=== PATIENT | female | born 1955 | race Caucasian/White ===

== ENCOUNTER → 2017-07-17 12:19 | Outpatient (POV) | payer BC, SELFPAY | PROVIDERS: Visit Provider Dentist | DX: Z00.00 Encounter for general adult medical examination without abnormal findings (principal) ==

== ENCOUNTER → 2017-11-13 12:01 | Outpatient (POV) | payer BC, SELFPAY | PROVIDERS: Visit Provider Dentist | DX: Z00.00 Encounter for general adult medical examination without abnormal findings (principal) ==

== ENCOUNTER → 2018-02-12 11:09 | Outpatient (POV) | payer BC, SELFPAY | PROVIDERS: Visit Provider Dentist | DX: Z00.00 Encounter for general adult medical examination without abnormal findings (principal) ==

== ENCOUNTER 2023-02-09 14:38 | Observation (INO) | payer MEDICARE, SELFPAY ==
[2023-02-09] VITALS (13 sets, daily range): BP systolic 98–145; BP diastolic 35–62; PULSE 69–84; RESP 16–20; TEMP 36.6–36.9; O2SAT 91–100; BMI 27.6; BMI 26.6
--- NOTE | 2023-02-09 14:47 | ECG_ITS ---
APPROVED REPORT Exam: Resting ECG HR:80 bpm ECG Measurements Heart Rate 80 AXES MD 163 P 63 QRSd 100 QRS 65 QT 417 T 58 QTc 452 Conclusion SINUS RHYTHM POSSIBLE INFERIOR MYOCARDIAL INFARCTION , PROBABLY OLD [30 ms Q WAVE IN II/aVF] BORDERLINE ECG UNCONFIRMED REPORT Electronically signed by : David Beckman MD 02/11/2023 20:54:41
--- NOTE | 2023-02-09 14:56 | HMH.EDGENADL ---
Discharge Plan Disposition Patient Disposition: Admitted Chief Complaint: Shortness of Breath/Dyspnea Prescriptions Prescriptions: No Action atorvastatin 80 MG tablet 40 mg PO HS oxybutynin chloride 10 MG tablet extended release 24hr 5 mg PO BID lisinopril 20 MG tablet 20 mg PO DAILY gabapentin 400 MG capsule 800 mg PO QID aspirin 81 MG tablet,delayed release (DR/EC) 81 mg PO DAILY levothyroxine 100 MCG tablet 100 mg PO DAILY MDD . amitriptyline 25 MG tablet 25 mg PO DAILY omeprazole magnesium 20 MG tablet,delayed release (DR/EC) 40 mg PO DAILY famotidine 40 mg tablet 40 mg PO DAILY Patient Comments: TAKE 1 TABLET BY MOUTH EVERY DAY fenofibrate micronized 134 mg capsule 134 mg PO DAILY Patient Comments: TAKE 1 CAPSULE BY MOUTH EVERY DAY glimepiride 4 mg tablet 4 mg PO DAILY Patient Comments: TAKE 1 TABLET BY MOUTH TWICE A DAY promethazine 25 mg tablet 25 mg PO TID Patient Comments: TAKE 1 TABLET BY MOUTH THREE TIMES A DAY ergocalciferol (vitamin D2) 1,250 mcg (50,000 unit) capsule 1,250 mcg PO DAILY Patient Comments: TAKE 1 CAPSULE BY MOUTH WEEKLY zolpidem 10 mg tablet 10 mg PO DAILY Patient Comments: TAKE 1 TABLET BY MOUTH EVERY EVENING pioglitazone 30 mg tablet 30 mg PO HS Patient Comments: TAKE 1 TABLET BY MOUTH EVERY DAY furosemide 20 mg tablet 20 mg PO DAILY Patient Comments: TAKE 1 TABLET BY MOUTH EVERY DAY Referrals Follow up/Referrals: Mohan Calhoun [Primary Care Provider] - See instructions Clinical Impressions Clinical Impression: Chronic gastrointestinal bleeding, Acute on chronic blood loss anemia Discharge ED Provider: Mundo Espino General Adult HPI <Sarah Hernandez MD - Last Filed: 02/09/23 15:00> General Chief complaint: Shortness of Breath/Dyspnea Stated complaint: SOA, weakness Time Seen by Provider: 02/09/23 14:46 History of Present Illness HPI narrative: Patient is a 67-year-old female with chronic blood loss anemia secondary to GI losses who presents today with symptomatic anemia. She states that she had her hemoglobin drawn several days ago with her primary care doctor and it was five and no blood transfusion was ordered. She has been dealing with this since 2013 states she had extensive work-up including a travel guide as well as a physician allergist immunologist has had multiple scopes and capsule endoscopy without any definitive evidence of why she is bleeding. She has no history of liver disease. She is not having any pain today. She denies being on anticoagulants or antiplatelets since this has been going on. She does have a history of coronary disease and he does have stents. No chest pain shortness of breath she does have weakness. Related Data Home Medications Medication Instructions Recorded Confirmed amitriptyline 25 mg tablet 25 mg PO DAILY sleep 12/07/18 02/09/23 aspirin 81 mg tablet,delayed 81 mg PO DAILY thinner 12/07/18 02/09/23 release atorvastatin 80 mg tablet 40 mg PO HS Cholesterol 12/07/18 02/09/23 gabapentin 400 mg capsule 800 mg PO QID Pain 12/07/18 02/09/23 levothyroxine 100 mcg tablet 100 mg PO DAILY thyroid 12/07/18 02/09/23 lisinopril 20 mg tablet 20 mg PO DAILY bp 12/07/18 02/09/23 omeprazole magnesium 20 mg 40 mg PO DAILY stomach 12/07/18 02/09/23 tablet,delayed release oxybutynin chloride 10 mg 5 mg PO BID bladder 12/07/18 02/09/23 tablet,extended release 24 hr ergocalciferol (vitamin D2) 1,250 1,250 mcg PO DAILY . 02/09/23 02/09/23 mcg (50,000 unit) capsule famotidine 40 mg tablet 40 mg PO DAILY . 02/09/23 02/09/23 fenofibrate micronized 134 mg 134 mg PO DAILY . 02/09/23 02/09/23 capsule furosemide 20 mg tablet 20 mg PO DAILY . 02/09/23 02/09/23 glimepiride 4 mg tablet 4 mg PO DAILY . 02/09/23 02/09/23 pioglitazone 30 mg tablet 30 mg PO HS . 02/09/23 02/09/23 promethazine 25 mg tablet 25
[2023-02-09 15:38] LABS: Alanine Aminotransferase 17 U/L (12-78); Albumin Level 4.1 g/dl (3.5-5.0); Albumin/Globulin Ratio 1.3 (1.1-1.8); Alkaline Phosphatase 81 U/L (38-126); Anion Gap 10.3 mEq/L (5-15); Aspartate Amino Transferase 41 U/L (14-36); Basophils # 0.1 K/mm3 (0-0.2); Bilirubin,Total 0.4 mg/dl (0.2-1.3); Blood Urea Nitrogen 12 mg/dl (7-17); Calcium 8.9 mg/dl (8.4-10.2); Carbon Dioxide 27 mmol/L (22.0-30.0); Chloride 104 mmol/L (98-107); Creatinine Clearance Estimated 51 mL/min (50-200); Eosinophils # 0.4 K/mm3 (0.0-0.4); Eosinophils % 8.1 % (0.1-12.0); Estimated Glomerular Filt Rate 41 ml/min (>60); GFR (African American) 49 ML/MIN (>60); Globulin 3.2 g/dL (1.3-3.2); Glucose 156 mg/dl (74-100); Lymphocytes % 21.8 % (10-50); Mean Corpuscular HGB Conc 28.9 g/dL (31.8-35.4); Mean Corpuscular Hemoglobin 22.4 pg (27.0-31.2); Mean Corpuscular Volume 77.7 fl (81-99); Mean Platelet Volume 9.9 fl (7.4-10.4); Monocytes # 0.3 K/mm3 (0.1-1.0); Monocytes % 5.8 % (1.7-9.3); Neutrophils # 2.8 K/mm3 (1.8-7.8); Neutrophils % 63.2 % (37.0-80.0); Platelet Count 210 K/mm3 (142-424); Potassium 4.3 mmoL/L (3.5-5.1); Red Blood Count 2.62 M/mm3 (4.20-5.40); Red Cell Distribution Width 20.9 % (11.5-17.5); Sodium 137 mmol/L (136-145); Total Protein,Serum 7.3 g/dl (6.3-8.2); White Blood Count 4.4 K/mm3 (4.8-10.8)
[2023-02-09 15:45] LABS: INR 1.01 (0.9-1.1); Prothrombin Time 10.9 seconds (10.1-12.5)
[2023-02-09 15:50] LABS: Hematocrit 20.3 % (37.0-47.0)
--- NOTE | 2023-02-09 15:51 | PC.NURSE ---
Rounded on pt asked for something to eat pt states she can only eat soft foods, Carol Cordero calling cafeteria for a soft tray for pt , visitor at bs
--- NOTE | 2023-02-09 16:03 | CT_ITS ---
PROCEDURE INFORMATION: Exam: CTA Abdomen and Pelvis With Contrast Exam date and time: 02/09/2023 4:44 PM Age: 67 years old Clinical indication: Other: Gi bleed; Additional info: Gi bleed, history of aaa TECHNIQUE: Imaging protocol: Computed tomographic angiography of the abdomen and pelvis with contrast. Exam focused on the arteries. 3D rendering (Not supervised by radiologist): MIP and/or 3D reconstructed images were created by the technologist. Radiation optimization: All CT scans at this facility use at least one of these dose optimization techniques: automated exposure control; mA and/or kV adjustment per patient size (includes targeted exams where dose is matched to clinical indication); or iterative reconstruction. Contrast material: ISOVUE; Contrast volume: 100 ml; Contrast route: INTRAVENOUS (IV); REPORTING DATA: Count of CT and Cardiac NM exams in prior 12 months: This patient has received 0 known CTs and 0 known cardiac nuclear medicine studies in the 12 months prior to the current study. COMPARISON: No relevant prior studies available. FINDINGS: Aorta: Infrarenal abdominal aortic aneurysm measuring 3.6 cm in maximal diameter. No evidence of abdominal aortic dissection. Celiac trunk and mesenteric arteries: Mild (less than 50%) ostial stenosis of the celiac trunk secondary to atherosclerotic plaque. Moderate (50-69%) ostial stenosis of the superior mesenteric artery secondary to atherosclerotic plaque. Renal arteries: Mild (less than 50%) ostial stenosis of the bilateral main renal arteries secondary to atherosclerotic plaque. Accessory right main renal artery incidentally noted. Right iliac arteries: No aneurysm, occlusion, or significant stenosis. Left iliac arteries: No aneurysm, occlusion, or significant stenosis. Liver: Fatty liver with nodular liver contour suggestive of cirrhosis. Scattered punctate calcifications in the liver compatible with chronic sequelae of prior granulomatous disease. Gallbladder and bile ducts: Gallbladder contains gallstones. No gallbladder wall thickening or pericholecystic fluid. Pancreas: Unremarkable. Spleen: Mild splenomegaly, measuring 13.0 cm in craniocaudal axis. Scattered punctate calcifications in the spleen compatible with sequelae of prior granulomatous disease. Adrenal glands: Unremarkable. Kidneys and ureters: No renal or ureteral stones. No hydronephrosis. Stomach and bowel: No evidence of abnormal bowel mass lesion, hematoma, or active extravasation. Appendix: No evidence of appendicitis. Intraperitoneal space: No free fluid. No pneumoperitoneum. Lymph nodes: Unremarkable. Urinary bladder: Unremarkable. Reproductive: Status post hysterectomy. Bones/joints: Prominent Schmorl's node with disc vacuum phenomenon noted in the superior endplate of L5. No evidence of acute osseous abnormality or suspicious bone lesions. Soft tissues: Unremarkable. IMPRESSION: 1. No evidence of active gastrointestinal bleeding, noting limited sensitivity of CT in detecting gastrointestinal bleeds. 2. Cholelithiasis without evidence of acute cholecystitis. 3. Fatty liver with nodular liver contour suggestive of cirrhosis. 4. Mild splenomegaly. 5. Infrarenal abdominal aortic aneurysm measuring 3.6 cm in maximal diameter. 6. Mild (less than 50%) ostial stenosis of the celiac trunk secondary to atherosclerotic plaque. 7. Moderate (50-69%) ostial stenosis of the superior mesenteric artery secondary to atherosclerotic plaque. 8. Mild (less than 50%) ostial stenosis of the bilateral main renal arteries secondary to atherosclerotic plaque. 9. Additional non-acute ancillary findings are detailed above.
[2023-02-09 16:04] LABS: Hemoglobin 5.9 g/dL (12.2-16.2)
--- NOTE | 2023-02-09 16:11 | PC.NURSE ---
Addendum entered by Bonnie Thomas RN 02/09/23 16:52: pt blood had antibodies and need to send out for blood Original Note: spoke with lab who states pt blood has antibiotics, due to this they have to send her blood out to get the correct transfusion blood and this could take 4-6 hours. MD aware, updating pt at this time.
--- NOTE | 2023-02-09 16:48 | PC.NURSE ---
Pt arrived back to room from ct
--- NOTE | 2023-02-09 17:50 | PC.NURSE ---
placed call to [place] Dr Espino on with Vascular
--- NOTE | 2023-02-09 17:51 | PC.NURSE ---
pt resting in bed no needs at this time,call light at bs
--- NOTE | 2023-02-09 17:54 | PC.NURSE ---
kimo navarro speaking with [employer].
--- NOTE | 2023-02-09 18:09 | PC.NURSE ---
Registration notified of admission. Pt assigned to room 213 for Anemia and GI bleed to the hospitalist. Acute.
--- NOTE | 2023-02-09 18:18 | PC.NURSE ---
CALLED REPORT TO JENNIFER HENRIQUEZ.
--- NOTE | 2023-02-09 18:34 | PC.NURSE ---
rounded on pt she is resting in bed no needs,visitor at bs
--- NOTE | 2023-02-09 18:49 | PC.NURSE ---
arrived by w/c from ED
--- NOTE | 2023-02-09 19:22 | EXP.HP ---
History of Present Illness *Admission Date: 02/09/23 *Reason for visit:: Anemia *History of present illness: 67 year old female who presented to the ED for c/o SOB and symptomatic anemia. PMHX of CAD, HTN, HLD, hypothyroid, COPD, tobacco abuse, and AAA. The patient has had chronic anemia with out known cause since 2013. She went to her PCP 2 days prior and her hgb was 5.4. Today in the ED her Hgb is 5.9. The ED physician spoke with the vascular surgeons at [facility]. Outpatient follow up was recommended and arranged. The ED physician spoke with the hospitalist team for admission. The pt was admitted to the medical floor with plans to receive 2 units of PRBC. She arrives to the floor in no acute distress. She does appear pale. She denies any known sources of bleeding. She will receive outpatient follow up with GI and vascular surgery. [facility] Disclaimer: The information contained in this section may have been updated after the patient was seen, as this information can be updated by other users. Social History (Updated 02/09/23 @ 15:00 by Sarah Hernandez MD) Smoking Status: Current every day smoker alcohol intake: never current occupational status: other (unknown) Travel in the last 8 weeks: None (unknown) caffeine: Yes Review of Systems Review of Systems Review of systems:: pertinent systems reviewed and negative unless documented below Constitutional Constitutional: Reports system reviewed and no additional complaints, except as documented Eyes Eyes: Reports system reviewed and no additional complaints, except as documented ENT Ears, Nose, Mouth, and Throat: Reports system reviewed and no additional complaints, except as documented *Cardiovascular Cardiovascular: Reports system reviewed and no additional complaints, except as documented and Reports dyspnea *Respiratory Respiratory: Reports system reviewed and no additional complaints, except as documented and Reports dyspnea *Gastrointestinal Gastrointestinal: Reports system reviewed and no additional complaints, except as documented *Genitourinary Genitourinary: Reports system reviewed and no additional complaints, except as documented *Musculoskeletal Musculoskeletal: Reports muscle weakness *Neurologic Neurologic: Reports system reviewed and no additional complaints, except as documented Meds Home Medications and Allergies Home Medications Medication Instructions Recorded Confirmed Type amitriptyline 25 mg tablet 25 mg PO HS sleep 12/07/18 02/10/23 History aspirin 81 mg tablet,delayed 81 mg PO DAILY heart health 12/07/18 02/10/23 History release atorvastatin 80 mg tablet 40 mg PO HS Cholesterol 12/07/18 02/10/23 History levothyroxine 100 mcg tablet 100 mg PO DAILY hypothyroidism 12/07/18 02/09/23 History lisinopril 20 mg tablet 20 mg PO DAILY blood pressure 12/07/18 02/10/23 History oxybutynin chloride 10 mg 5 mg PO BID overactive bladder 12/07/18 02/09/23 History tablet,extended release 24 hr ergocalciferol (vitamin D2) 1,250 1,250 mcg PO WEEKLY Supplement 02/09/23 02/10/23 History mcg (50,000 unit) capsule famotidine 40 mg tablet 40 mg PO DAILY Acid Reflux 02/09/23 02/09/23 History furosemide 20 mg tablet 20 mg PO DAILY diuretic 02/09/23 02/09/23 History glimepiride 4 mg tablet 4 mg PO BID Diabetes 02/09/23 02/10/23 History pioglitazone 30 mg tablet 30 mg PO HS Diabetes 02/09/23 02/09/23 History promethazine 25 mg tablet 25 mg PO TIDP PRN Nausea 02/09/23 02/10/23 History zolpidem 10 mg tablet 10 mg PO HS sleep 02/09/23 02/10/23 History gabapentin 800 mg tablet 800 mg PO QID neuropathic pain 02/10/23 02/10/23 History omeprazole 40 mg capsule,delayed 40 mg PO DAILY Acid Reflux 02/10/23 02/10/23 History release New Prescriptions to Start Prescriptions: Allergies Allergy/AdvReac Type Severity Reaction Status Date / Time No Known Allergies Allergy Verified 02/09/23 15:06 Exam Data for Last 24 hours Vital signs and Labs for Last
[2023-02-09 20:09] LABS: Thyroid Stimulating Hormone 5.02 uIU/mL (0.465-4.68)
[2023-02-09 20:35] LABS: Hemoglobin A1C < 4.0 % (4.0-6.0)
[2023-02-10] VITALS (25 sets, daily range): BP systolic 93–130; BP diastolic 38–61; PULSE 64–85; RESP 15–18; TEMP 36.6–37; O2SAT 92–100; BMI 26.7
--- NOTE | 2023-02-10 00:07 | PC.NURSE ---
SPOKE WITH LAB REGARDING PRBC'S FOR PT. lAB STAFF STATES STILL NO UPDATE FROM [facility]
[2023-02-10 04:27] LABS: POC Glucose,Bedside 122 (70-110)
--- NOTE | 2023-02-10 04:49 | PC.NURSE ---
Pt has had no complaints this shift. PRBC's currently infusing. Pt tolerating well.
[2023-02-10 05:28] LABS: POC Glucose,Bedside 210 (70-110)
--- NOTE | 2023-02-10 09:59 | PC.NURSE ---
COURTESY TECH NOTE; ROUNDED ON PT 0835, PT DENIED NEED FOR DRINK, ASSISTANCE WITH RESTROOM, AND NEED TO REPOSITION IN BED. CALL LIGHT WITHIN REACH, NO FURTHER REQUESTS AT THIS TIME MEGAN COUGHLIN
[2023-02-10 10:08] LABS: Basophils % 0.8 % (0.1-2.0); Eosinophils # 0.3 K/mm3 (0.0-0.4); Eosinophils % 10.3 % (0.1-12.0); Hematocrit 25.8 % (37.0-47.0); Lymphocytes # 0.7 K/mm3 (0.7-4.5); Lymphocytes % 21.5 % (10-50); Mean Corpuscular HGB Conc 29.9 g/dL (31.8-35.4); Mean Corpuscular Hemoglobin 24.7 pg (27.0-31.2); Mean Corpuscular Volume 82.7 fl (81-99); Monocytes # 0.2 K/mm3 (0.1-1.0); Monocytes % 6.4 % (1.7-9.3); Neutrophils # 1.9 K/mm3 (1.8-7.8); Neutrophils % 60.9 % (37.0-80.0); Platelet Count 167 K/mm3 (142-424); Red Blood Count 3.13 M/mm3 (4.20-5.40); Red Cell Distribution Width 19.1 % (11.5-17.5); White Blood Count 3.1 K/mm3 (4.8-10.8)
[2023-02-10 10:16] LABS: Anion Gap 9.2 mEq/L (5-15); Blood Urea Nitrogen 12 mg/dl (7-17); Calcium 8.1 mg/dl (8.4-10.2); Carbon Dioxide 26 mmol/L (22.0-30.0); Chloride 108 mmol/L (98-107); Creatinine Clearance Estimated 63 mL/min (50-200); Estimated Glomerular Filt Rate 55 ml/min (>60); GFR (African American) 67 ML/MIN (>60); Glucose 189 mg/dl (74-100); Potassium 4.2 mmoL/L (3.5-5.1); Sodium 139 mmol/L (136-145)
[2023-02-10 10:18] LABS: Hemoglobin 7.7 g/dL (12.2-16.2)
[2023-02-10 11:05] LABS: Hematocrit 25.2 % (37.0-47.0); Hemoglobin 7.6 g/dL (12.2-16.2)
--- NOTE | 2023-02-10 12:12 | EXP.DC.SUM ---
General Admission date:: 02/09/23 Discharge date: 02/10/23 HPI HPI HPI: Forwarded from H&P: 67 year old female who presented to the ED for c/o SOB and symptomatic anemia. PMHX of CAD, HTN, HLD, hypothyroid, COPD, tobacco abuse, and AAA. The patient has had chronic anemia with out known cause since 2013. She went to her PCP 2 days prior and her hgb was 5.4. Today in the ED her Hgb is 5.9. The ED physician spoke with the vascular surgeons at [facility]. Outpatient follow up was recommended and arranged. The ED physician spoke with the hospitalist team for admission. The pt was admitted to the medical floor with plans to receive 2 units of PRBC. She arrives to the floor in no acute distress. She does appear pale. She denies any known sources of bleeding. She will receive outpatient follow up with GI and vascular surgery. Hospital Course Hospital Course Hospital Course: The patient was transfused 2 units of PRBCs. hgb increased from 5.9 to 7.6 She states that she had an extensive workup in the past for her history of anemia and iron deficiency. She states she refused further workup for suspected GI bleed after undergoing multiple inconclusive studies including EGD/colonoscopy and capsule endoscopy; all of which were done over a year ago. She states that over the past year she has received blood transfusion on 2 or 3 more occasions. She will need to follow up with her Geriatric Case Manager/Oncologist Dr. Eber Mohan in 1 week. She will also need to follow up with her pcp in 1 week. She has a chronic history of melena. I asked her to stop taking aspirin. She states she has a history of CAD and had a stent placed over 10 years ago. She will need to follow up with her Civil Cadd Technician Dr. Lepe in [facility] in 2 weeks. Exam Data for Last 24 hours Vital signs and Labs for Last 24 Hours: Temp Pulse Resp BP Pulse Ox O2 Del Method 97.8 F 85 18 130/51 L 97 Room Air 02/10/23 11:19 02/10/23 11:40 02/10/23 11:19 02/10/23 11:19 02/10/23 11:19 02/10/23 09:00 Laboratory Results - last 24 hr 02/09/23 15:00: WBC 4.4 L, RBC 2.62 L, Hgb 5.9 L*, Hct 20.3 L*, MCV 77.7 L, MCH 22.4 L, MCHC 28.9 L, RDW 20.9 H, Plt Count 210, MPV 9.9, Neut % (Auto) 63.2, Lymph % (Auto) 21.8, [place] % (Auto) 5.8, Eos % (Auto) 8.1, Baso % (Auto) 1.0, Neut # (Auto) 2.8, Lymph # (Auto) 1.0, [place] # (Auto) 0.3, Eos # (Auto) 0.4, Baso # (Auto) 0.1, PT 10.9, INR 1.01, APTT 28.0, Sodium 137, Potassium 4.3, Chloride 104, Carbon Dioxide 27, Anion Gap 10.3, BUN 12, Creatinine 1.30 H, Estimated Creat Clear 51, Estimated GFR 41 L, Est GFR ( Amer) 49 L, Glucose 156 H, Hemoglobin A1c < 4.0 L, Calcium 8.9, Total Bilirubin 0.4, AST 41 H, ALT 17, Alkaline Phosphatase 81, Total Protein 7.3, Albumin 4.1, Globulin 3.2, Albumin/Globulin Ratio 1.3, TSH 5.02 H, Blood Type O Positive, Blood Type Confirm O Positive, Antibody Screen Positive, Antibody Identification Anti-K, Crossmatch (AHG) See Detail 02/09/23 20:35: POC Glucose 122 H 02/10/23 05:04: POC Glucose 210 H 02/10/23 09:45: WBC 3.1 L D, RBC 3.13 L, Hgb 7.7 L D 02/10/23 09:45: Hgb 7.6 L, Hct 25.8 L 02/10/23 09:45: Hct 25.2 L, MCV 82.7, MCH 24.7 L, MCHC 29.9 L, RDW 19.1 H, Plt Count 167, MPV 10.0, Neut % (Auto) 60.9, Lymph % (Auto) 21.5, [place] % (Auto) 6.4, Eos % (Auto) 10.3, Baso % (Auto) 0.8, Neut # (Auto) 1.9, Lymph # (Auto) 0.7, [place] # (Auto) 0.2, Eos # (Auto) 0.3, Baso # (Auto) 0.0, Sodium 139, Potassium 4.2, Chloride 108 H, Carbon Dioxide 26, Anion Gap 9.2, BUN 12, Creatinine 1.00 D, Estimated Creat Clear 63, Estimated GFR 55 L, Est GFR ( Amer) 67 D, Glucose 189 H D, Calcium 8.1 L I & O for Last 24 hours: Intake & Output 02/07/23 02/08/23 02/09/23 02/10/23 23:59 23:59 23:59 23:59 Intake Total 730 / 730 Output Total 0 / 0 Balance 730 / 730 Weight 74.984 kg 75.478 kg Constitutional Constitutional: no acute distress *Routine HEENT Exam Head: Present normocephalic Eye: Present EOMI and PERRL ENT: Present mucous
[2023-02-10 12:18] LABS: POC Glucose,Bedside 184 (70-110)
--- NOTE | 2023-02-11 14:38 | CARE MANAGER ---
Spoke with patient for post-discharge phone interview, no issues noted.
== END 2023-02-10 12:58 | disposition home or self-care (01) ==
LOC: ER 18:08 → 2ND 18:26
PROVIDERS: Nurse Practitioner Critical Care Medicine; Student in an Organized Health Care Education/Training Program; Admitting Provider Internal Medicine; Emergency Provider Emergency Medicine; PCP Family Medicine; Visit Provider Internal Medicine
DX: K92.2 Gastrointestinal hemorrhage, unspecified (principal); N17.9 Acute kidney failure, unspecified; D62 Acute posthemorrhagic anemia; E11.9 Type 2 diabetes mellitus without complications; I71.40 Abdominal aortic aneurysm, without rupture, unspecified; I10 Essential (primary) hypertension; E78.5 Hyperlipidemia, unspecified; E03.9 Hypothyroidism, unspecified; J44.9 Chronic obstructive pulmonary disease, unspecified; F17.210 Nicotine dependence, cigarettes, uncomplicated; Z79.899 Other long term (current) drug therapy; Z79.84 Long term (current) use of oral hypoglycemic drugs
CPT/HCPCS: G0378; 36415; 36430; 74174; 80048; 80053; 82962; 83036; 84443; 85014; 85018; 85025; 85610; 85730; 86850; 86870; 93005; 94640; 99285; J2405; P9016; Q9967

== ENCOUNTER → 2023-03-13 10:55 | Outpatient (CLI) | payer MEDICARE, SELFPAY ==
[2023-03-13 11:47] LABS: Basophils # 0.1 K/mm3 (0-0.2); Basophils % 1.5 % (0.1-2.0); Eosinophils # 0.4 K/mm3 (0.0-0.4); Eosinophils % 10.9 % (0.1-12.0); Hematocrit 32.5 % (37.0-47.0); Hemoglobin 10.2 g/dL (12.2-16.2); Lymphocytes # 0.8 K/mm3 (0.7-4.5); Lymphocytes % 23.3 % (10-50); Mean Corpuscular HGB Conc 31.4 g/dL (31.8-35.4); Mean Corpuscular Hemoglobin 26.2 pg (27.0-31.2); Mean Corpuscular Volume 83.4 fl (81-99); Mean Platelet Volume 8.7 fl (7.4-10.4); Monocytes # 0.2 K/mm3 (0.1-1.0); Monocytes % 5.5 % (1.7-9.3); Neutrophils % 58.9 % (37.0-80.0); Platelet Count 153 K/mm3 (142-424); Red Cell Distribution Width 19.1 % (11.5-17.5); White Blood Count 3.4 K/mm3 (4.8-10.8)
[2023-03-13 12:25] LABS: Chloride 103 mmol/L (98-107); Potassium 4.7 mmoL/L (3.5-5.1)
[2023-03-13 12:28] LABS: Alanine Aminotransferase 30 U/L (12-78); Albumin Level 4.1 g/dl (3.5-5.0); Albumin/Globulin Ratio 1.4 (1.1-1.8); Alkaline Phosphatase 84 U/L (38-126); Aspartate Amino Transferase 73 U/L (14-36); Bilirubin,Total 0.4 mg/dl (0.2-1.3); Blood Urea Nitrogen 14 mg/dl (7-17); Calcium 9.7 mg/dl (8.4-10.2); Carbon Dioxide 26 mmol/L (22.0-30.0); Estimated Glomerular Filt Rate 45 ml/min (>60); GFR (African American) 54 ML/MIN (>60); Glucose 204 mg/dl (74-100); Iron 43 ug/dL (37-170); Total Protein,Serum 7.1 g/dl (6.3-8.2)
[2023-03-13 12:35] LABS: Anion Gap 14.7 mEq/L (5-15); Sodium 139 mmol/L (136-145)
[2023-03-13 12:38] LABS: Total Iron Binding Capacity 470 ug/dL (265-497)
[2023-03-13 13:04] LABS: Ferritin 21.5 ng/ml (11.1-264)
[2023-03-13 13:25] LABS: Vitamin B12 795 pg/mL (239-931)
[2023-03-13 13:44] LABS: Folate 5.53 ng/mL
[2023-03-14 11:08] LABS: Haptoglobin 124 mg/dL (37-355)
== END ==
PROVIDERS: PCP Family Medicine; Visit Provider Internal Medicine Medical Oncology
DX: D50.9 Iron deficiency anemia, unspecified (principal)
CPT/HCPCS: 36415; 80053; 82525; 82607; 82728; 82746; 83010; 83540; 83550; 85025

== ENCOUNTER 2023-04-02 10:07 | Day surgery (SDC) | payer MEDICARE, SELFPAY ==
[2023-03-21 14:35] VITALS: BMI 26.3
[2023-04-02 10:57] VITALS: BP 157/55; PULSE 79; RESP 18; TEMP 36.3; O2SAT 96
[2023-04-02 11:07] LABS: POC Glucose,Bedside 206 (70-110)
--- NOTE | 2023-04-02 11:49 | EXP.ANES.CKL ---
[facility] Disclaimer: The information contained in this section may have been updated after the patient was seen, as this information can be updated by other users. Medical History Anemia Aneurysm Anxiety Arthritis Cancer HTN (hypertension), benign T2DM (type 2 diabetes mellitus) Surgical History H/O breast biopsy History of partial hysterectomy Hx of tonsillectomy Family History Other Coronary artery disease Diabetes Social History Smoking Status: Current every day smoker alcohol intake: never substance use type: denies use current occupational status: other (unknown) Travel in the last 8 weeks: None (unknown) household members: none housing: house lives independently: Yes marital status: single caffeine: Yes [facility] Anesthesia Checklist Patient Identification Patient Identification: Arm Band and Verbal (Name & ) Structural Data Admitted From: Home Planned Operative Procedure/s: EGD Consent for Planned Operative Procedure(s) Verified: Yes NPO Status Verified Time NPO: 00:00 Chart Verification Results Verified: CBC and BMP Additional verifications Anesthesia Reactions: No Airway Assessment Mallampati Score:: Class IV C-Spine Mobility Assessed: Yes TMJ Mobility Assessed: Yes Dentition: Edentulous Neurological Assessment Level of Consciousness: Awake Hx Seizures: No Numbness or tingling in extremities: No Anesthesia Plan Anesthesia Risk discussed: Yes Anesthesia Plan: Verified ASA Class: IV Anesthesia Type: MAC
[2023-04-02 11:58] VITALS: O2SAT 96
--- NOTE | 2023-04-02 12:09 | HMH.SCOPE ---
Procedure: Date: 04/02/23 Patient Date of :: 1955 Procedure Performed:: EGD Indications:: Dysphagia Performing Provider:: Glenn Lemons MD Referring Provider:: Mohan Calhoun MD Sedation:: See RN records Procedure:: The gastroscope was gently passed through the incisoral orifice into the oral cavity and under direct visualization the esophagus was intubated. The endoscope was passed down the esophagus, through the stomach, and into the duodenum. Color, texture, mucosa, and anatomy of the esophagus, stomach, and duodenum were carefully examined with the scope. Findings:: Oropharynx: normal Esophagus: normal. biopsies obtained distal and mid esophagus. Empiric dilatation performed with 54F bougie dilation EG Junction: measured at 44 cm Cardia: normal Fundus: normal Body: minimal gastritis. biopsies obtained Antrum: linear erythema, minimal gastritis. biopsies obtained Duodenal bulb: normal Duodenum (second and third portion): normal Impression: Minimal gastritis Recommendations:: Await pathology results If dysphagia symptom does not improve with esophageal dilation, then consider barium esophagram with tablet Complications:: None Estimated blood obtained (mL): 0 Colonoscopy Component Colonoscopy Component Was a colonoscopy performed during today's procedure?: No
[2023-04-02 12:20] VITALS: BP 105/58; PULSE 64; RESP 18; TEMP 36.3; O2SAT 97
[2023-04-02 12:35] VITALS: BP 125/65; PULSE 68; RESP 18; O2SAT 98
[2023-04-02 12:50] VITALS: BP 133/67; PULSE 64; RESP 18; O2SAT 98
== END 2023-04-02 12:51 | disposition home or self-care (01) ==
PROVIDERS: PCP Family Medicine; Visit Provider Internal Medicine
PROC: 0DJ08ZZ Inspection of Upper Intestinal Tract, Via Natural or Artificial Opening Endoscopic (ICD-10-PCS; CPT 43235; principal; 2023-04-02 11:30)
DX: R13.10 Dysphagia, unspecified (principal); K29.70 Gastritis, unspecified, without bleeding; E11.9 Type 2 diabetes mellitus without complications
CPT/HCPCS: 43239; 43248; 82962; 88305

== ENCOUNTER 2024-03-31 13:06 | Observation (INO) | payer MEDICARE, SELFPAY ==
[2024-03-31] VITALS (21 sets, daily range): BP systolic 112–164; BP diastolic 46–116; PULSE 74–89; RESP 15–21; TEMP 36.4–37.2; O2SAT 91–100; BMI 25.8; BMI 24.7
--- NOTE | 2024-03-31 13:12 | ECG_ITS ---
APPROVED REPORT Exam: Resting ECG HR:86 bpm ECG Measurements Heart Rate 86 AXES KS 194 P 46 QRSd 108 QRS 31 QT 384 T 48 QTc 428 Conclusion SINUS RHYTHM POSSIBLE LEFT ATRIAL ENLARGEMENT [-0.1mV P-WAVE IN V1/V2] Electronically signed by : Franco Tidwell, 03/31/2024 15:43:21
--- NOTE | 2024-03-31 13:15 | PC.NURSE ---
DR ALLEN AT BEDSIDE
--- NOTE | 2024-03-31 13:21 | XR_ITS ---
FINAL REPORT CLINICAL HISTORY: SOA FINDINGS: Oval opacity in the left perihilar region is present which could represent mass or infiltrate. Right lung shows abnormal density in the right infrahilar region which could be scarring or pneumonia. There is no evidence of effusion or other pleural disease. Abnormal widening of the mediastinum is noted at the level of the AP window. This raises a question of adenopathy. The cardiac silhouette is unremarkable. IMPRESSION: Bilateral pulmonary abnormalities with widened mediastinum. Recommend further assessment with chest CT with IV contrast Authenticated and ERN
--- NOTE | 2024-03-31 13:25 | HMH.EDGENADL ---
Discharge Plan Disposition Patient Disposition: Admitted Chief Complaint: Shortness of Breath/Dyspnea Clinical Impressions Clinical Impression: Shortness of breath, Anemia, Metastatic primary lung cancer Discharge ED Provider: Mundo Espino General Adult HPI <Franco Tidwell MD - Last Filed: 03/31/24 15:34> General Chief complaint: Shortness of Breath/Dyspnea Stated complaint: soa Time Seen by Provider: 03/31/24 13:09 Mode of Arrival: Wheelchair Source of Information: Patient Limitations: No Limitations Description of Symptoms (Recalled from ER Triage Doc. by RN): Patient reports increased shortness of breath when moving. History of Present Illness HPI narrative: This is a 68-year-old female with a history of CAD status post stenting and type 2 diabetes who presents with shortness of breath. States that she has chronic blood loss anemia from GI source, however has had extensive workup including EGD and colonoscopy which was unremarkable. States that she will have to be transfused intermittently. States she feels weak and shortness of breath and believes that her blood counts are low and that she may need another transfusion. Denies any other symptoms. Denies chest pain. States that she smokes 1.5 packs/day and has for many years. Has never been officially diagnosed with COPD. Related Data Home Medications ?Medication ?Instructions ?Recorded ?Confirmed amitriptyline 25 mg tablet 25 mg PO HS sleep 12/07/18 03/13/23 atorvastatin 80 mg tablet 40 mg PO HS Cholesterol 12/07/18 03/13/23 levothyroxine 100 mcg tablet 100 mg PO DAILY hypothyroidism 12/07/18 03/13/23 lisinopril 20 mg tablet 20 mg PO DAILY blood pressure 12/07/18 03/13/23 ergocalciferol (vitamin D2) 1,250 1,250 mcg PO WEEKLY Supplement 02/09/23 03/13/23 mcg (50,000 unit) capsule famotidine 40 mg tablet 40 mg PO DAILY Acid Reflux 02/09/23 03/13/23 furosemide 20 mg tablet 20 mg PO DAILY diuretic 02/09/23 03/13/23 glimepiride 4 mg tablet 4 mg PO BID Diabetes 02/09/23 03/13/23 pioglitazone 30 mg tablet 30 mg PO HS Diabetes 02/09/23 03/13/23 promethazine 25 mg tablet 25 mg PO TIDP PRN Nausea 02/09/23 03/13/23 zolpidem 10 mg tablet 10 mg PO HS sleep 02/09/23 03/13/23 gabapentin 800 mg tablet 800 mg PO QID neuropathic pain 02/10/23 03/13/23 omeprazole 40 mg capsule,delayed 40 mg PO DAILY Acid Reflux 02/10/23 03/13/23 release fenofibrate micronized 134 mg 134 mg PO DAILY . 03/13/23 03/13/23 capsule oxybutynin chloride 5 mg tablet 5 mg PO BID . 03/13/23 03/13/23 Allergies Allergy/AdvReac Type Severity Reaction Status Date / Time No Known Allergies Allergy Verified 04/02/23 10:39 PFS <Farnco Tidwell MD - Last Filed: 03/31/24 15:34> PFS Disclaimer: The information contained in this section may have been updated after the patient was seen, as this information can be updated by other users. Medical History (Updated 03/31/24 @ 17:08 by Mundo Espino MD) Anxiety Aneurysm T2DM (type 2 diabetes mellitus) Anemia Arthritis Cancer HTN (hypertension), benign Surgical History Hx of tonsillectomy H/O breast biopsy History of partial hysterectomy Family History Diabetes Coronary artery disease Social History Smoking Status: Current every day smoker alcohol intake: never substance use type: denies use current occupational status: other (unknown) Travel in the last 8 weeks: None (unknown) household members: none housing: house lives independently: Yes marital status: single caffeine: Yes <Franco Tidwell MD - Last Filed: 03/31/24 15:34> ROS Obtained: Yes All systems reviewed & no additional complaints except as documented Physical Exam <Franco Tidwell MD - Last Filed: 03/31/24 15:34> General General appearance: alert and in no apparent distress Eye Eye exam: Present normal appearance, PERRL and EOMI Respiratory Respiratory exam: Present normal lung sounds bilaterally; Absent respiratory distress Cardiovascular Cardiovascular exam: Present regular rate and normal rhythm Abdominal Exam Abdominal exam: Present soft and distention; Absent tenderness, guarding or rebound Extremities Exam Extremities exam: Present normal inspection Neurological Exam Neurological exam: Present alert and oriented X3 Skin Skin exam: Present warm and dry Medical Decision Making <Franco Tidwell MD - Last Filed: 03/31/24 15:34> Medical Records Medical records reviewed: Yes I reviewed the patient's medical records. Screening: Per USPSTF and CDC recommendations, given the prevalence of disease in our region, it is our hospital?s policy to screen for HIV and viral Hepatitis for all patients aged 18 and over and those with ongoing risk factors. Bill Inquiry Pt receiving controlled substance: No Vital Signs: 03/31/24 13:07 03/31/24 13:12 03/31/24 14:30 Temperature 98.4 F Temperature Source Oral Pulse Rate 89 77 Pulse Rate [Radial] 86 Respiratory Rate 16 19 Blood Pressure 150/56 H 164/116 H Blood Pressure [Right Arm] 150/56 H Blood Pressure Mean [Right Arm] 87 Blood Pressure Source [Right Arm] Automatic Cuff Blood Pressure Position [Right Arm] Sitting 02 Sat by Pulse Oximetry 94 L 94 L 94 L Oxygen Delivery Method Room Air Nasal Cannula Room Air 03/31/24 15:00 03/31/24 15:30 03/31/24 16:00 Temperature Temperature Source Pulse Rate 77 85 84 Pulse Rate [Radial] Respiratory Rate 21 16 21 Blood Pressure 127/63 124/93 H 143/92 H Blood Pressure [Right Arm] Blood Pressure Mean [Right Arm] Blood Pressure Source [Right Arm] Blood Pressure Position [Right Arm] 02 Sat by Pulse Oximetry 95 92 L 91 L Oxygen Delivery Method Room Air Room Air Room Air 03/31/24 16:42 Temperature Temperature Source Pulse Rate 82 Pulse Rate [Radial] Respiratory Rate 19 Blood Pressure 137/63 Blood Pressure [Right Arm] Blood Pressure Mean [Right Arm] Blood Pressure Source [Right Arm] Blood Pressure Position [Right Arm] 02 Sat by Pulse Oximetry 95 Oxygen Delivery Method Nasal Cannula Lab Data Lab Results 03/31/24 13:20: WBC 4.6 L, RBC 2.78 L, Hgb 6.6 L*, Hct 22.3 L, MCV 80.2 L, MCH 23.9 L, MCHC 29.8 L, RDW 19.1 H, Plt Count 183, MPV 9.7, Neut % (Auto) 68.6, Lymph % (Auto) 16.3, [place] % (Auto) 5.4, Eos % (Auto) 8.3, Baso % (Auto) 1.5, Neut # (Auto) 3.2, Lymph # (Auto) 0.8, [place] # (Auto) 0.3, Eos # (Auto) 0.4, Baso # (Auto) 0.1, PT 10.8, INR 0.96, D-Dimer 0.55 H, Sodium 134 L, Potassium 3.8, Chloride 106, Carbon Dioxide 24, Anion Gap 7.8, BUN 12, Creatinine 0.90, Estimated Creat Clear 60, Estimated GFR 62, Est GFR ( Amer) 75, Glucose 189 H, Calcium 9.8, Total Bilirubin 0.5, AST 44 H, ALT 22, Alkaline Phosphatase 80, Troponin I < 0.01, Total Protein 7.8, Albumin 4.1, Globulin 3.7 H, Albumin/Globulin Ratio 1.1, HIV 1&2 Antibody Rapid Nonreactive 03/31/24 13:21: Blood Type O Positive, Blood Type Confirm O Positive, Antibody Screen Negative, Crossmatch ([facility]) See Detail 03/31/24 13:25: VBG pH 7.43 H, VBG pCO2 34.9 L, VBG pO2 78.2 H, VBG HCO3 22.7 L, VBG Total CO2 23.8, VBG O2 Saturation 94.9 H, VBG Base Excess -1.6, VBG Lactic Acid 2.2 H 03/31/24 13:20 03/31/24 13:20 Orders (Tests/Meds): ED MEDICATIONS Generic Name Dose Route Start Last Admin Trade Name Freq PRN Reason Stop Dose Admin Sodium Chloride 250 mls @ 25 mls/hr 03/31/24 14:15 Sod Chlor 0.9% 250ml Bag IV 04/01/24 14:14 .Q10H ALYSSA Sodium Chloride 10 ml 03/31/24 15:15 Sodium Chloride 0.9% 10ml Vial IV 04/30/24 15:14 NEEDED PRN to Dilute Lorazepam inj Discontinued Medications Generic Name Dose Route Start Last Admin Trade Name Freq PRN Reason Stop Dose Admin Iopamidol 75 ml 03/31/24 15:43 03/31/24 15:45 Iopamidol-370 (76%);100ml Bottle IV 03/31/24 15:44 75 ml ONCE ONE Administration Lorazepam 1 mg 03/31/24 15:15 03/31/24 15:19 Lorazepam 2mg/Ml Vial IV 03/31/24 15:16 1 mg ONCE ONE Administration Ondansetron HCl 4 mg 03/31/24 15:25 03/31/24 15:27 Ondansetron 4mg/2ml Vial IV 03/31/24 15:26 4 mg ONCE ONE Administration Sodium Chloride 10 ml 03/31/24 15:43 03/31/24 15:44 Sodium Chloride 0.9% 10ml Syr (Rad Only) IV 03/31/24 15:44 10 ml ONCE ONE Administration ORDERS Category Date Time Status Blood transfusion [Red Blood Cells] Stat BBK 03/31/24 13:21 Results Type and Screen Stat BBK 03/31/24 13:[address] chest w con Stat Cat Scan 03/31/24 14:50 Completed Pulmonology Consult [Consult to Pulmonology] [CONS] Cons 04/01/24 07:00 Active Routine Chest XR 2 view (NOT portable) [XR chest 2V] Stat Exams 03/31/24 13:21 Completed CBC w/Auto Diff [Complete Blood Count Auto Diff] Stat Lab 03/31/24 13:20 Completed CMP [Comprehensive Metabolic Panel] Stat Lab 03/31/24 13:20 Completed Complete Blood Count Auto Diff AMLAB Lab 04/01/24 06:00 Ordered Comprehensive Metabolic Panel AMLAB Lab 04/01/24 06:00 Ordered D-Dimer Stat Lab 03/31/24 13:20 Completed HIV (1&2) Antibody Rapid Stat Lab 03/31/24 13:20 Completed Hep C Ab with Reflex to RNA Stat Lab 03/31/24 13:20 Received Magnesium AMLAB Lab 04/01/24 06:00 Ordered PT/INR [Prothrombin Time INR] Stat Lab 03/31/24 13:20 Completed Troponin I Stat Lab 03/31/24 13:20 Completed VBG [Venous Blood Gas] Stat RT 03/31/24 13:25 Completed ECG Data Tracing #1: I reviewed this ECG and interpreted as documented below: Normal sinus rhythm at a rate of 86, QTc 428, normal axis, no STEMI Medical Decision Narrative: In summary, this 68-year-old female with a history of CAD status post stenting and type 2 diabetes presents to the emergency department today with shortness of breath and generalized weakness. On initial evaluation patient is afebrile, hemodynamically stable, nontoxic-appearing, satting appropriately on room air with no abnormal lung sounds. Differential diagnosis includes but is not limited to ACS, PE, pneumonia, anemia. Based on these concerns, I ordered CBC, CMP, PT/INR, VBG, chest x-ray, D-dimer. Considered CT PE, however will evaluate patient's risk for pulmonary embolism with D-dimer first as she is low risk on Wells criteria. ECG personally interpreted as noted above. Labs personally reviewed demonstrate hypoesthetic, hypochromic anemia with a hemoglobin of 6.6 likely representing iron deficiency, D-dimer 0.55 which is less than patient's age-adjusted cutoff (no indication for CT imaging), respiratory alkalosis with venous pH is 7.43 and low pCO2 at 34.9, mildly elevated lactate at 2.2, undetectable troponin. XR personally interpreted demonstrates no acute consolidative process concerning for pneumonia. Radiology report noted widened mediastinum at the patti concerning for mediastinal lymphadenopathy. CT chest with IV contrast was ordered at this time. Patient reports claustrophobia. Administered Ativan 1 mg for anxiolysis prior to CT. At the time of shift change, CT imaging was pending. Care handed off to the next provider on. <Mundo Espino MD - Last Filed: 03/31/24 17:08> Vital Signs: 03/31/24 13:07 03/31/24 13:12 03/31/24 14:30 Temperature 98.4 F Temperature Source Oral Pulse Rate 89 77 Pulse Rate [Radial] 86 Respiratory Rate 16 19 Blood Pressure 150/56 H 164/116 H Blood Pressure [Right Arm] 150/56 H Blood Pressure Mean [Right Arm] 87 Blood Pressure Source [Right Arm] Automatic Cuff Blood Pressure Position [Right Arm] Sitting 02 Sat by Pulse Oximetry 94 L 94 L 94 L Oxygen Delivery Method Room Air Nasal Cannula Room Air 03/31/24 15:00 03/31/24 15:30 03/31/24 16:00 Temperature Temperature Source Pulse Rate 77 85 84 Pulse Rate [Radial] Respiratory Rate 21 16 21 Blood Pressure 127/63 124/93 H 143/92 H Blood Pressure [Right Arm] Blood Pressure Mean [Right Arm] Blood Pressure Source [Right Arm] Blood Pressure Position [Right Arm] 02 Sat by Pulse Oximetry 95 92 L 91 L Oxygen Delivery Method Room Air Room Air Room Air 03/31/24 16:42 Temperature Temperature Source Pulse Rate 82 Pulse Rate [Radial] Respiratory Rate 19 Blood Pressure 137/63 Blood Pressure [Right Arm] Blood Pressure Mean [Right Arm] Blood Pressure Source [Right Arm] Blood Pressure Position [Right Arm] 02 Sat by Pulse Oximetry 95 Oxygen Delivery Method Nasal Cannula Lab Data Lab Results 03/31/24 13:20: WBC 4.6 L, RBC 2.78 L, Hgb 6.6 L*, Hct 22.3 L, MCV 80.2 L, MCH 23.9 L, MCHC 29.8 L, RDW 19.1 H, Plt Count 183, MPV 9.7, Neut % (Auto) 68.6, Lymph % (Auto) 16.3, [place] % (Auto) 5.4, Eos % (Auto) 8.3, Baso % (Auto) 1.5, Neut # (Auto) 3.2, Lymph # (Auto) 0.8, [place] # (Auto) 0.3, Eos # (Auto) 0.4, Baso # (Auto) 0.1, PT 10.8, INR 0.96, D-Dimer 0.55 H, Sodium 134 L, Potassium 3.8, Chloride 106, Carbon Dioxide 24, Anion Gap 7.8, BUN 12, Creatinine 0.90, Estimated Creat Clear 60, Estimated GFR 62, Est GFR ( Amer) 75, Glucose 189 H, Calcium 9.8, Total Bilirubin 0.5, AST 44 H, ALT 22, Alkaline Phosphatase 80, Troponin I < 0.01, Total Protein 7.8, Albumin 4.1, Globulin 3.7 H, Albumin/Globulin Ratio 1.1, HIV 1&2 Antibody Rapid Nonreactive 03/31/24 13:21: Blood Type O Positive, Blood Type Confirm O Positive, Antibody Screen Negative, Crossmatch ([facility]) See Detail 03/31/24 13:25: VBG pH 7.43 H, VBG pCO2 34.9 L, VBG pO2 78.2 H, VBG HCO3 22.7 L, VBG Total CO2 23.8, VBG O2 Saturation 94.9 H, VBG Base Excess -1.6, VBG Lactic Acid 2.2 H Orders (Tests/Meds): ED MEDICATIONS Generic Name Dose Route Start Last Admin Trade Name Fresamir PRN Reason Stop Dose Admin Sodium Chloride 250 mls @ 25 mls/hr 03/31/24 14:15 Sod Chlor 0.9% 250ml Bag IV 04/01/24 14:14 .Q10H ALYSSA Sodium Chloride 10 ml 03/31/24 15:15 Sodium Chloride 0.9% 10ml Vial IV 04/30/24 15:14 NEEDED PRN to Dilute Lorazepam inj Discontinued Medications Generic Name Dose Route Start Last Admin Trade Name Freq PRN Reason Stop Dose Admin Iopamidol 75 ml 03/31/24 15:43 03/31/24 15:45 Iopamidol-370 (76%);100ml Bottle IV 03/31/24 15:44 75 ml ONCE ONE Administration Lorazepam 1 mg 03/31/24 15:15 03/31/24 15:19 Lorazepam 2mg/Ml Vial IV 03/31/24 15:16 1 mg ONCE ONE Administration Ondansetron HCl 4 mg 03/31/24 15:25 03/31/24 15:27 Ondansetron 4mg/2ml Vial IV 03/31/24 15:26 4 mg ONCE ONE Administration Sodium Chloride 10 ml 03/31/24 15:43 03/31/24 15:44 Sodium Chloride 0.9% 10ml Syr (Rad Only) IV 03/31/24 15:44 10 ml ONCE ONE Administration ORDERS Category Date Time Status Blood transfusion [Red Blood Cells] Stat BBK 03/31/24 13:21 Results Type and Screen Stat BBK 03/31/24 13:[address] chest w con Stat Cat Scan 03/31/24 14:50 Completed Pulmonology Consult [Consult to Pulmonology] [CONS] Cons 04/01/24 07:00 Active Routine Chest XR 2 view (NOT portable) [XR chest 2V] Stat Exams 03/31/24 13:21 Completed CBC w/Auto Diff [Complete Blood Count Auto Diff] Stat Lab 03/31/24 13:20 Completed CMP [Comprehensive Metabolic Panel] Stat Lab 03/31/24 13:20 Completed Complete Blood Count Auto Diff AMLAB Lab 04/01/24 06:00 Ordered Comprehensive Metabolic Panel AMLAB Lab 04/01/24 06:00 Ordered D-Dimer Stat Lab 03/31/24 13:20 Completed HIV (1&2) Antibody Rapid Stat Lab 03/31/24 13:20 Completed Hep C Ab with Reflex to RNA Stat Lab 03/31/24 13:20 Received Magnesium AMLAB Lab 04/01/24 06:00 Ordered PT/INR [Prothrombin Time INR] Stat Lab 03/31/24 13:20 Completed Troponin I Stat Lab 03/31/24 13:20 Completed VBG [Venous Blood Gas] Stat RT 03/31/24 13:25 Completed Medical Decision Narrative: In summary, this 68-year-old female with a history of CAD status post stenting and type 2 diabetes presents to the emergency department today with shortness of breath and generalized weakness. On initial evaluation patient is afebrile, hemodynamically stable, nontoxic-appearing, satting appropriately on room air with no abnormal lung sounds. Differential diagnosis includes but is not limited to ACS, PE, pneumonia, anemia. Based on these concerns, I ordered CBC, CMP, PT/INR, VBG, chest x-ray, D-dimer. Considered CT PE, however will evaluate patient's risk for pulmonary embolism with D-dimer first as she is low risk on Wells criteria. ECG personally interpreted as noted above. Labs personally reviewed demonstrate hypoesthetic, hypochromic anemia with a hemoglobin of 6.6 likely representing iron deficiency, D-dimer 0.55 which is less than patient's age-adjusted cutoff (no indication for CT imaging), respiratory alkalosis with venous pH is 7.43 and low pCO2 at 34.9, mildly elevated lactate at 2.2, undetectable troponin. XR personally interpreted demonstrates no acute consolidative process concerning for pneumonia. Radiology report noted widened mediastinum at the patti concerning for mediastinal lymphadenopathy. CT chest with IV contrast was ordered at this time. Patient reports claustrophobia. Administered Ativan 1 mg for anxiolysis prior to CT. At the time of shift change, CT imaging was pending. Care handed off to the next provider on. Srinivas: I assumed primary responsibility for this patient after signout from previous physician. On my evaluation, patient no acute distress. Nontachycardic, normotensive. Independent interpretation of workup demonstrates patient CBC concerning for leukopenia and anemia with white count 4.6, hemoglobin 6.6. Type and screen O+ with anti-K antibodies. Because of this, patient going to be admitted. Coags normal. D-dimer age-adjusted negative. VBG nonactionable. Chemistry nonactionable with normal kidney function. Troponin negative. Chest x-ray independently interpreted. Appears to be left upper lobe infiltrate versus mass with mediastinal adenopathy. CT of the chest with contrast was ordered. On independent interpretation, patient has 2 left-sided lung masses, right sided lung mass with severe mediastinal lymphadenopathy concerning for metastatic cancer. Given patient new diagnosis of cancer, extensive conversation had with her and family, all questions were answered. Hospitalist was contacted and case was discussed at length, patient to be admitted for transfusion, pulmonology and oncology follow-up because patient high risk for clinical decompensation, deemed appropriate for inpatient admission. Results were relayed to patient who voiced understanding and patient was agreeable to inpatient admission and management. Patient was admitted to the hospital for further definitive management. Critical Care <Franco Tidwell MD - Last Filed: 03/31/24 15:34> Critical Care Time Critical Care Time: No
--- NOTE | 2024-03-31 13:25 | PC.NURSE ---
RESPIRATORY NOTIFIED OF VBG
[2024-03-31 13:37] LABS: Basophils # 0.1 K/mm3 (0-0.2); Basophils % 1.5 % (0.1-2.0); Eosinophils # 0.4 K/mm3 (0.0-0.4); Eosinophils % 8.3 % (0.1-12.0); Hematocrit 22.3 % (37.0-47.0); Lymphocytes # 0.8 K/mm3 (0.7-4.5); Lymphocytes % 16.3 % (10-50); Mean Corpuscular HGB Conc 29.8 g/dL (31.8-35.4); Mean Corpuscular Hemoglobin 23.9 pg (27.0-31.2); Mean Corpuscular Volume 80.2 fl (81-99); Mean Platelet Volume 9.7 fl (7.4-10.4); Monocytes # 0.3 K/mm3 (0.1-1.0); Monocytes % 5.4 % (1.7-9.3); Neutrophils # 3.2 K/mm3 (1.8-7.8); Neutrophils % 68.6 % (37.0-80.0); Platelet Count 183 K/mm3 (142-424); Red Blood Count 2.78 M/mm3 (4.20-5.40); Red Cell Distribution Width 19.1 % (11.5-17.5); White Blood Count 4.6 K/mm3 (4.8-10.8)
[2024-03-31 13:38] LABS: VBG Base Excess -1.6 mmol/L (-2.4-2.3); VBG HCO3 22.7 mmol/L (23-30); VBG Oxygen Saturation 94.9 % (50-70); VBG PCO2 34.9 mmol/L (35-51); VBG PH 7.43 mmol/L (7.31-7.41); VBG PO2 78.2 mmol/L (28-40); VBG Total CO2 23.8 mmol/L (23-27)
[2024-03-31 13:39] LABS: Lactate Venous 2.2 mmol/L (0.4-2.0)
[2024-03-31 13:45] LABS: Hemoglobin 6.6 g/dL (12.2-16.2); INR 0.96 (0.9-1.1); Prothrombin Time 10.8 seconds (10.1-12.5)
--- NOTE | 2024-03-31 13:45 | PC.NURSE ---
CRITICAL HEMOGLOBIN 6.6 RECEIVED FROM [facility] IN LAB. PT NAME AND R/V/ DR GREEN NOTIFIED
[2024-03-31 13:47] LABS: Albumin Level 4.1 g/dl (3.5-5.0); Chloride 106 mmol/L (98-107); Potassium 3.8 mmoL/L (3.5-5.1); Sodium 134 mmol/L (136-145)
[2024-03-31 13:49] LABS: Blood Urea Nitrogen 12 mg/dl (7-17); Creatinine Clearance Estimated 60 mL/min (50-200); Estimated Glomerular Filt Rate 62 ml/min (>60); GFR (African American) 75 ML/MIN (>60)
[2024-03-31 13:50] LABS: Alanine Aminotransferase 22 U/L (12-78); Albumin/Globulin Ratio 1.1 (1.1-1.8); Alkaline Phosphatase 80 U/L (38-126); Anion Gap 7.8 mEq/L (5-15); Aspartate Amino Transferase 44 U/L (14-36); Bilirubin,Total 0.5 mg/dl (0.2-1.3); Calcium 9.8 mg/dl (8.4-10.2); Carbon Dioxide 24 mmol/L (22.0-30.0); Globulin 3.7 g/dL (1.3-3.2); Glucose 189 mg/dl (74-100); Total Protein,Serum 7.8 g/dl (6.3-8.2)
[2024-03-31 13:56] LABS: D-Dimer 0.55 ug/mL (0.0-0.5)
[2024-03-31 14:11] LABS: Troponin I < 0.01 ng/ml (0.00-0.034)
--- NOTE | 2024-03-31 14:50 | CT_ITS ---
FINAL REPORT TECHNIQUE: After the administration of intravenous contrast, axial images through the chest were performed by computed tomography.This study was performed with techniques to keep radiation doses as low as reasonably achievable, (ALARA). Individualized dose reduction techniques using automated exposure control or adjustment of mA and/or kV according to the patient''s size were employed. CLINICAL HISTORY: mediastinal widening FINDINGS: There is a right lower lobe necrotic mass suspicious for neoplasm measuring 28 x 26 mm. There are 3 lesions in the left upper lobe, largest measures 38 x 32 mm compatible with neoplasm accounting for chest radiograph abnormality. Note is made of emphysema. There is extensive confluent mediastinal and hilar adenopathy encasing the distal trachea and subcarina region. This compresses the right mainstem bronchus. Extensive adenopathy is suggestive of metastatic small cell carcinoma, lymphoproliferative disorder is less likely. There is retrotracheal and right supraclavicular adenopathy as well. The retrotracheal node within the neck measures 30 mm. IMPRESSION: Extensive disease favored to represent small cell lung cancer with metastases, lymphoproliferative disorder much less likely. Bronchoscopy or lung biopsy may be considered for diagnosis. Reviewed, Interpreted and Dictated by Fern Stiles MD Transcribed by Mindy Carrera Authenticated and [facility]
[2024-03-31] MEDS: LORazepam 2MG/ML VIAL 1 MG IV (15:19)
[2024-03-31 15:25] LABS: HIV (1&2) Antibody Rapid NONREACTIVE (NONREACTIVE)
[2024-03-31] MEDS: ONDANSETRON 4MG/2ML VIAL 4 MG IV (15:27)
[2024-03-31] MEDS: SODIUM CHLORIDE 0.9% 10ML SYR (RAD ONLY) 10 ML IV (15:44)
[2024-03-31] MEDS: IOPAMIDOL-370 (76%);100ML BOTTLE 75 ML IV (15:45)
--- NOTE | 2024-03-31 15:48 | PC.NURSE ---
PT TO CT
--- NOTE | 2024-03-31 16:21 | PC.NURSE ---
PT PROVIDED WARM BLANKET
--- NOTE | 2024-03-31 16:32 | PC.NURSE ---
Pt low O2 sat, asked patient about oxygen, stated that she is supposed to be on O2 at home but refuses. Pt placed on O2 2 LPM via NC.
--- NOTE | 2024-03-31 16:49 | PC.NURSE ---
DR MASCORRO SPEAKING WITH HOSPITALIST
--- NOTE | 2024-03-31 16:52 | PC.NURSE ---
DRYWALL SANDER NOTIFIED OF ADMISSION
--- NOTE | 2024-03-31 16:53 | P.HP_ITS ---
History of Present Illness *Admission Date: 03/31/24 *Reason for visit:: weakness, dyspnea with exertion *History of present illness: History is a 68-year-old female with COPD, chronically on 2 L oxygen. Long history of smoking, has at least a 92-[id number] history. History of diabetes, h ypothyroid, pendant's. She presented to the ER for worsening dyspnea with exertion over the past few days. States she has just not felt well for the past few weeks. Has had a persistent cough that is nonproductive. Has previously had anemia with transfusion within the past year at a different hospital. Worked up with no identified source of blood loss. Has also received iron transfusions in the past. On presentation today, she denies loyda fever, blood in her stool, black stools, hemoptysis. Denies any night sweats or unexpected weight loss. Continues to smoke 1 to 1-1/2 packs a day. Workup in the ER concerning for severe anemia with hemoglobin of 6.6. MCV of 80. Chest imaging also identified multiple masses in her lungs along with significant mediastinal lymphadenopathy. Strong concern for lung cancer with metastasis. Medicine was consulted for admission for further management including transfusion and evaluation for new diagnosis of suspected lung cancer. On arrival to the floor, patient is stable on 2 L oxygen. Is pleasant but a little altered due to receiving Ativan in the ER. Sister at bedside helps supplement history. Requesting something to eat. [facility] Disclaimer: The information contained in this section may have been updated after the patient was seen, as this information can be updated by other users. Medical History Anxiety Aneurysm T2DM (type 2 diabetes mellitus) Anemia Arthritis Cancer HTN (hypertension), benign Surgical History Hx of tonsillectomy H/O breast biopsy History of partial hysterectomy Family History Diabetes Coronary artery disease Social History Smoking Status: Current every day smoker alcohol intake: never substance use type: denies use current occupational status: other (unknown) Travel in the last 8 weeks: None (unknown) household members: none housing: house lives independently: Yes marital status: single caffeine: Yes Review of Systems Review of Systems Review of systems (narrative): 14 point review of systems performed, pertinent positives and negatives as per HPI Meds Home Medications and Allergies Home Medications ?Medication ?Instructions ?Recorded ?Confirmed ?Type amitriptyline 25 mg tablet 25 mg PO HS sleep 12/07/18 03/31/24 History atorvastatin 80 mg tablet 40 mg PO HS Cholesterol 12/07/18 03/31/24 History levothyroxine 100 mcg tablet 100 mg PO DAILY hypothyroidism 12/07/18 03/31/24 History lisinopril 20 mg tablet 20 mg PO DAILY blood pressure 12/07/18 03/31/24 History ergocalciferol (vitamin D2) 1,250 1,250 mcg PO WEEKLY Supplement 02/09/23 03/31/24 History mcg (50,000 unit) capsule famotidine 40 mg tablet 40 mg PO DAILY Acid Reflux 02/09/23 03/31/24 History furosemide 20 mg tablet 20 mg PO DAILY diuretic 02/09/23 03/31/24 History glimepiride 4 mg tablet 4 mg PO BID Diabetes 02/09/23 03/31/24 History pioglitazone 30 mg tablet 30 mg PO HS Diabetes 02/09/23 03/31/24 History promethazine 25 mg tablet 25 mg PO TIDP PRN Nausea 02/09/23 03/31/24 History zolpidem 10 mg tablet 10 mg PO HS sleep 02/09/23 03/31/24 History gabapentin 800 mg tablet 800 mg PO QID neuropathic pain 02/10/23 03/31/24 History omeprazole 40 mg capsule,delayed 40 mg PO DAILY Acid Reflux 02/10/23 03/31/24 History release fenofibrate micronized 134 mg 134 mg PO DAILY . 03/13/23 03/31/24 History capsule oxybutynin chloride 5 mg tablet 5 mg PO BID . 03/13/23 03/31/24 History New Prescriptions to Start Prescriptions: Allergies Allergy/AdvReac Type Severity Reaction Status Date / Time No Known Allergies Allergy Verified 04/02/23 10:39 Exam Data for Last 24 hours Vital signs and Labs for Last 24 Hours: Temp Pulse Resp BP Pulse Ox O2 Del Method 98.4 F 82 19 137/63 95 Nasal Cannula 03/31/24 13:07 03/31/24 16:42 03/31/24 16:42 03/31/24 16:42 03/31/24 16:42 03/31/24 16:42 Laboratory Results - last 24 hr 03/31/24 13:20: WBC 4.6 L, RBC 2.78 L, Hgb 6.6 L*, Hct 22.3 L, MCV 80.2 L, MCH 23.9 L, MCHC 29.8 L, RDW 19.1 H, Plt Count 183, MPV 9.7, Neut % (Auto) 68.6, Lymph % (Auto) 16.3, [place] % (Auto) 5.4, Eos % (Auto) 8.3, Baso % (Auto) 1.5, Neut # (Auto) 3.2, Lymph # (Auto) 0.8, [place] # (Auto) 0.3, Eos # (Auto) 0.4, Baso # (Auto) 0.1, PT 10.8, INR 0.96, D-Dimer 0.55 H, Sodium 134 L, Potassium 3.8, Chloride 106, Carbon Dioxide 24, Anion Gap 7.8, BUN 12, Creatinine 0.90, Estimated Creat Clear 60, Estimated GFR 62, Est GFR ( Amer) 75, Glucose 189 H, Calcium 9.8, Total Bilirubin 0.5, AST 44 H, ALT 22, Alkaline Phosphatase 80, Troponin I < 0.01, Total Protein 7.8, Albumin 4.1, Globulin 3.7 H, Albumin/Globulin Ratio 1.1, HIV 1&2 Antibody Rapid Nonreactive 03/31/24 13:21: Blood Type O Positive, Blood Type Confirm O Positive, Antibody Screen Negative, Crossmatch (AHG) See Detail 03/31/24 13:25: VBG pH 7.43 H, VBG pCO2 34.9 L, VBG pO2 78.2 H, VBG HCO3 22.7 L, VBG Total CO2 23.8, VBG O2 Saturation 94.9 H, VBG Base Excess -1.6, VBG Lactic Acid 2.2 H I & O for Last 24 hours: Intake & Output 03/28/24 03/29/24 03/30/24 03/31/24 23:59 23:59 23:59 23:59 Weight 72.575 kg Constitutional Constitutional: mild distress, chronically ill appearing and cooperative *Routine HEENT Exam Head: Present normocephalic Eye: Present EOMI ENT: Present mucous membranes moist Comments: Edentulous *Routine Neck Exam Neck: Present full ROM and lymphadenopathy *Routine Respiratory Exam Respiratory: Present prolonged expiratory phase, wheezes, diminished air movement and normal respiratory effort; Absent rhonchi or crackles *Routine Cardiovascular Exam Cardiovascular: Present RRR *Routine Abdominal Exam Abdominal: Present soft and normoactive bowel sounds; Absent tenderness *Routine Rectal Exam Rectal:: deferred *Routine Genitalia Exam Genitalia:: deferred *Routine Extremities Exam Extremities: Present full ROM *Routine Skin Exam Skin: Present intact and pallor *Routine Neurological Exam Neurological: Present alert, oriented X3 and moving all extremities; Absent altered mental status Assessment and Plan *Assessment and plan (1) Anemia: Status: Acute Qualifiers: Anemia type: iron deficiency Iron deficiency anemia type: chronic blood loss Qualified Code(s): D50.0 - Iron deficiency anemia secondary to blood loss (chronic) Category: Medical Code(s): D64.9 - Anemia, unspecified (2) Shortness of breath: Status: Acute Category: Medical Code(s): R06.02 - Shortness of breath (3) Diabetes: Status: Acute Category: Medical Code(s): E11.9 - Type 2 diabetes mellitus without complications (4) COPD (chronic obstructive pulmonary disease): Status: Acute Category: Medical Code(s): J44.9 - Chronic obstructive pulmonary disease, unspecified (5) Tobacco abuse: Status: Acute Category: Medical Code(s): Z72.0 - Tobacco use (6) Hypothyroid: Status: Acute Category: Medical Code(s): E03.9 - Hypothyroidism, unspecified (7) AAA (abdominal aortic aneurysm): Status: Acute Category: Medical Code(s): I71.40 - Abdominal aortic aneurysm, without rupture, unspecified (8) HTN (hypertension): Status: Acute Category: Medical Code(s): I10 - Essential (primary) hypertension (9) Cancer: Status: Acute Category: Medical Code(s): C80.1 - Malignant (primary) neoplasm, unspecified (10) Mediastinal lymphadenopathy: Status: Acute Category: Medical Code(s): R59.0 - Localized enlarged lymph nodes Plan 68-year-old female who presents with dyspnea with exertion. Found to be profoundly anemic with new finding of suspected lung cancer with mediastinal lymphadenopathy. Discussed case with ER physician, request admission for transfusion as she has antibodies and it will take quite some time for blood to arrive from [place]. Also request admission for further workup and initiation of evaluation of her mediastinal lymphadenopathy and suspected lung cancer. I agreed to admit for further management. Problems addressed as follows: Acute on chronic anemia, iron deficiency -Previous history of iron deficiency and iron transfusions. Hemoglobin 6.6. MCV 80. Will transfuse 2 units. Post H&H pending. Repeat CBC, CMP, magnesium ordered for the morning -Iron studies pending including TIBC, iron level, iron saturation, ferritin -Continue famotidine 40 mg daily and pantoprazole 40 mg nightly - Kidney function normal with BUN 12, creatinine 0.9. Diabetes: A1c pending. Holding home glimepiride and pioglitazone. Initiate sliding scale insulin with fingersticks ACHS. Glucose 189 on arrival. Hypothyroid: Continue levothyroxine 100 mcg daily. pending TSH ordered for morning COPD Suspected lung cancer with mediastinal metastasis/lymphadenopathy Postobstructive pneumonia -Per my review of CT, patient has 2 golf ball sized masses 1 in left upper lobe and right lower lobe. Right lower lobe lesion appears to have consolidation and a postobstructive pattern. Also has significant mediastinal lymphadenopathy with large lesion compressing esophagus. Patient does report difficulty with swallowing pills and eating food. -Initiate ceftriaxone 1 g daily. Sputum sample pending - duoNebs every 6 hours scheduled. -Supplemental oxygen as needed, goal sats greater 90% -Pulmonology consulted to assist with further workup and management of COPD as well as suspected lung cancer Tobacco use disorder: Nicotine patch daily, greater than [id number] history Sleep disorder: Continue zolpidem 10 mL grams nightly. Anxiety/depression: Continue amitriptyline 25 mg nightly Hyperlipidemia: Continue Lipitor 40 Neuropathy: Continue gabapentin 800 mg 4 times a day Hypertension: Continue lisinopril 20 mg daily Overactive bladder continue home oxybutynin 5 mg twice daily Full code Holding anticoagulation in the setting of possible biopsy Regular diet
--- NOTE | 2024-03-31 17:12 | PC.NURSE ---
Report called to Med Surg.
--- NOTE | 2024-03-31 17:34 | PC.NURSE ---
arrived by w/c from ED
[2024-03-31 17:40] LABS: Reflex Lactic Add Lactic Reflex
[2024-03-31 18:14] LABS: Lactic Acid Follow Up (RFLX 1) 0.7 mmol/L (0.7-2.1)
[2024-03-31] MEDS: CEFTRIAXONE SODIUM 1 GM in 0.9 % SODIUM CHLORIDE 50 ML IV (18:44)
[2024-03-31] MEDS: IPRATROPIUM/ALBUTEROL 3 ML NEB IH ×2 (18:56→23:01)
[2024-03-31] MEDS: PANTOPRAZOLE 40MG TABLET 40 MG PO (20:57)
[2024-03-31] MEDS: AMITRIPTYLINE 25MG TABLET 25 MG PO (20:57)
[2024-03-31] MEDS: GABAPENTIN 800MG TABLET 800 MG PO (20:57)
[2024-03-31] MEDS: ATORVASTATIN 40MG TABLET 40 MG PO (20:57)
[2024-03-31] MEDS: OXYBUTYNIN 5MG TAB 5 MG PO (20:57)
[2024-03-31] MEDS: ZOLPIDEM TARTRATE 10 MG TABLET PO (20:58)
[2024-03-31] MEDS: humaLOG 100 UNITS/ML 10ML VIAL (SSI) SQ (21:03)
[2024-03-31 21:21] LABS: POC Glucose,Bedside 199 (70-110)
[2024-04-01] VITALS (21 sets, daily range): BP systolic 100–143; BP diastolic 41–91; PULSE 72–89; RESP 16–20; TEMP 36.3–36.8; O2SAT 87–93; BMI 25.2
[2024-04-01 03:40] LABS: Hematocrit 22.9 % (37.0-47.0)
--- NOTE | 2024-04-01 04:18 | EXP.EVENT.NO ---
Patient admitted to hospital for symptomatic anemia. Patient status post 1 unit packed RBCs with repeat hemoglobin 7.0. Will transfuse another 1 unit packed RBCs and recheck hemoglobin 2 hours after transfusion.
--- NOTE | 2024-04-01 04:18 | PC.NURSE ---
68 yo female pt at beginning of shift was A/O X 3. After meds given, pt noted with confusion and saying things that did not make sense. Sister in the room with pt reported this as pts normal after bedtime meds. 02 on at 2 liters per nc throughout shift. Transfused with 1 unit of blood, post transfusion H & H at 7.0 and 22. 9. Reported labs to Dr Sewell. FSBS at 9 pm was 199. Covered with insulin per SS, see SEP. Pt and sister both talked openly about newly diagnosed lung cancer, ( pt was Dx in ER yesterday ) Pt slept soundly and comfortably most of the shift.
[2024-04-01] MEDS: IPRATROPIUM/ALBUTEROL 3 ML NEB IH ×2 (05:09→11:12)
[2024-04-01] MEDS: 0.9 % SODIUM CHLORIDE 250 ML 25 ML IV (05:40)
[2024-04-01 05:48] LABS: POC Glucose,Bedside 137 (70-110)
--- NOTE | 2024-04-01 07:34 | P.PN_ITS ---
Subjective *Date: 04/01/24 *Time: 07:34 Medical Exam Vital signs and Labs for Last 24 Hours: Vital Signs Temp Pulse Pulse Resp BP BP Pulse Ox 04/01/24 06:54 04/01/24 06:50 97.5 F L 78 18 129/55 L 93 L 04/01/24 06:35 97.4 F L 77 16 100/42 L 92 L 04/01/24 06:20 97.4 F L 78 16 105/52 L 93 L 04/01/24 06:18 97.4 F L 79 16 112/49 L 93 L 04/01/24 06:05 97.4 F L 80 18 113/49 L 91 L 04/01/24 06:00 97.4 F L 80 18 108/49 L 92 L 04/01/24 05:55 97.7 F 81 16 106/48 L 91 L 04/01/24 05:50 97.6 F 80 18 119/49 L 91 L 04/01/24 05:47 98.0 F 80 17 111/69 91 L 04/01/24 05:10 72 04/01/24 05:10 75 04/01/24 05:10 90 L 04/01/24 05:00 04/01/24 04:00 98.0 F 75 18 121/50 L 92 L 04/01/24 03:00 04/01/24 02:40 97.5 F L 80 16 127/53 L 93 L 04/01/24 01:35 97.7 F 78 16 112/47 L 92 L 04/01/24 01:20 97.5 F L 80 18 93 L 04/01/24 01:00 04/01/24 00:20 97.4 F L 83 20 109/66 L 93 L 04/01/24 00:05 98.3 F 83 18 117/41 L 91 L 04/01/24 00:00 97.9 F 84 18 112/47 L 90 L 03/31/24 23:50 97.5 F L 85 16 122/53 L 92 L 03/31/24 23:50 97.5 F L 85 16 122/53 L 92 L 03/31/24 23:35 98.1 F 86 20 123/52 L 94 L 03/31/24 23:30 98.1 F 85 20 112/46 L 92 L 03/31/24 23:25 98.0 F 85 18 95 03/31/24 23:20 98.4 F 84 18 118/52 L 94 L 03/31/24 23:05 97.6 F 85 18 124/50 L 94 L 03/31/24 23:02 84 03/31/24 23:02 84 03/31/24 23:00 03/31/24 21:00 03/31/24 20:00 98 03/31/24 19:57 98.6 F 89 18 148/86 H 98 03/31/24 18:59 87 03/31/24 18:59 88 03/31/24 18:59 99 03/31/24 17:34 98.9 F 74 17 143/73 H 100 03/31/24 17:32 98.0 F 77 17 144/73 H 03/31/24 17:27 77 17 144/73 H 100 03/31/24 17:00 76 15 144/57 H 98 03/31/24 16:42 82 19 137/63 95 03/31/24 16:00 84 21 143/92 H 91 L 03/31/24 15:30 85 16 124/93 H 92 L 03/31/24 15:00 77 21 127/63 95 03/31/24 14:30 77 19 164/116 H 94 L 03/31/24 13:12 89 150/56 H 94 L 03/31/24 13:07 98.4 F 86 16 150/56 H 94 L O2 Del Method O2 Flow Rate 04/01/24 06:54 Nasal Cannula 2 04/01/24 06:50 04/01/24 06:35 04/01/24 06:20 04/01/24 06:18 04/01/24 06:05 04/01/24 06:00 04/01/24 05:55 04/01/24 05:50 04/01/24 05:47 04/01/24 05:10 04/01/24 05:10 04/01/24 05:10 Nasal Cannula 2 04/01/24 05:00 Nasal Cannula 2 04/01/24 04:00 Nasal Cannula 2 04/01/24 03:00 Nasal Cannula 2 04/01/24 02:40 04/01/24 01:35 04/01/24 01:20 04/01/24 01:00 Nasal Cannula 2 04/01/24 00:20 04/01/24 00:05 04/01/24 00:00 Room Air 03/31/24 23:50 03/31/24 23:50 03/31/24 23:35 03/31/24 23:30 03/31/24 23:25 03/31/24 23:20 03/31/24 23:05 03/31/24 23:02 03/31/24 23:02 03/31/24 23:00 Nasal Cannula 2 03/31/24 21:00 Nasal Cannula 2 03/31/24 20:00 2 03/31/24 19:57 Room Air 03/31/24 18:59 03/31/24 18:59 03/31/24 18:59 Nasal Cannula 2 03/31/24 17:34 Nasal Cannula 2 03/31/24 17:32 Nasal Cannula 2 03/31/24 17:27 Nasal Cannula 03/31/24 17:00 Nasal Cannula 03/31/24 16:42 Nasal Cannula 03/31/24 16:00 Room Air 03/31/24 15:30 Room Air 03/31/24 15:00 Room Air 03/31/24 14:30 Room Air 03/31/24 13:12 Nasal Cannula 03/31/24 13:07 Room Air Intake and Output 03/31/24 03/31/24 04/01/24 15:59 23:59 07:59 Intake Total 0 / 0 250 / 250 Output Total 0 / 0 0 / 0 Balance 0 / 0 250 / 250 Intake: Intake (Blood Product) Amt 0 / 0 250 / 250 Red Blood Cells Unit 0 / 0 250 / 250 [id number] Red Blood Cells Unit 0 / 0 [id number] Output: Output, Urine Amount 0 / 0 0 / 0 Other: Number of Unmeasured Voids 1 1 Weight 72.575 kg 69.938 kg 71.3 kg Patient Weight 04/01/24 23:59 Weight 71.3 kg Laboratory Results - last 24 hr 03/31/24 13:20: WBC 4.6 L, RBC 2.78 L, Hgb 6.6 L*, Hct 22.3 L, MCV 80.2 L, MCH 23.9 L, MCHC 29.8 L, RDW 19.1 H, Plt Count 183, MPV 9.7, Neut % (Auto) 68.6, Lymph % (Auto) 16.3, [place] % (Auto) 5.4, Eos % (Auto) 8.3, Baso % (Auto) 1.5, Neut # (Auto) 3.2, Lymph # (Auto) 0.8, [place] # (Auto) 0.3, Eos # (Auto) 0.4, Baso # (Auto) 0.1, PT 10.8, INR 0.96, D-Dimer 0.55 H, Sodium 134 L, Potassium 3.8, Chloride 106, Carbon Dioxide 24, Anion Gap 7.8, BUN 12, Creatinine 0.90, Estimated Creat Clear 60, Estimated GFR 62, Est GFR ( Amer) 75, Glucose 189 H, Calcium 9.8, Total Bilirubin 0.5, AST 44 H, ALT 22, Alkaline Phosphatase 80, Troponin I < 0.01, Total Protein 7.8, Albumin 4.1, Globulin 3.7 H, Albumin/Globulin Ratio 1.1, HIV 1&2 Antibody Rapid Nonreactive 03/31/24 13:21: Blood Type O Positive, Blood Type Confirm O Positive, Antibody Screen Negative, Crossmatch (AHG) See Detail 03/31/24 13:25: VBG pH 7.43 H, VBG pCO2 34.9 L, VBG pO2 78.2 H, VBG HCO3 22.7 L, VBG Total CO2 23.8, VBG O2 Saturation 94.9 H, VBG Base Excess -1.6, VBG Lactic Acid 2.2 H 03/31/24 17:01: Hemoglobin A1c 6.0 03/31/24 17:55: Lactate 0.7 03/31/24 21:01: POC Glucose 199 H 04/01/24 03:00: Hgb 7.0 L, Hct 22.9 L 04/01/24 05:41: POC Glucose 137 H I & O for Labs for Last 24 Hours: Intake & Output 03/29/24 03/30/24 03/31/24 04/01/24 23:59 23:59 23:59 23:59 Intake Total 0 / 0 250 / 250 Output Total 0 / 0 0 / 0 Balance 0 / 0 250 / 250 Weight 69.938 kg 71.3 kg Assessment and Plan *Assessment and plan (1) Anemia: Status: Acute Qualifiers: Anemia type: iron deficiency Iron deficiency anemia type: chronic blood loss Qualified Code(s): D50.0 - Iron deficiency anemia secondary to blood loss (chronic) Category: Medical Code(s): D64.9 - Anemia, unspecified (2) Mediastinal lymphadenopathy: Status: Acute Category: Medical Code(s): R59.0 - Localized enlarged lymph nodes (3) Shortness of breath: Status: Acute Category: Medical Code(s): R06.02 - Shortness of breath (4) Diabetes: Status: Acute Category: Medical Code(s): E11.9 - Type 2 diabetes mellitus without complications (5) COPD (chronic obstructive pulmonary disease): Status: Acute Category: Medical Code(s): J44.9 - Chronic obstructive pulmonary disease, unspecified (6) Tobacco abuse: Status: Acute Category: Medical Code(s): Z72.0 - Tobacco use (7) Hypothyroid: Status: Acute Category: Medical Code(s): E03.9 - Hypothyroidism, unspecified (8) AAA (abdominal aortic aneurysm): Status: Acute Category: Medical Code(s): I71.40 - Abdominal aortic aneurysm, without rupture, unspecified (9) HTN (hypertension): Status: Acute Category: Medical Code(s): I10 - Essential (primary) hypertension (10) Cancer: Status: Acute Category: Medical Code(s): C80.1 - Malignant (primary) neoplasm, unspecified Plan 68-year-old female who presents with dyspnea with exertion. Found to be profoundly anemic with new finding of suspected lung cancer with mediastinal lymphadenopathy. Discussed case with ER physician, request admission for transfusion as she has antibodies and it will take quite some time for blood to arrive from [place]. Also request admission for further workup and initiation of evaluation of her mediastinal lymphadenopathy and suspected lung cancer. I agreed to admit for further management. Problems addressed as follows: Acute on chronic anemia, iron deficiency -Previous history of iron deficiency and iron transfusions. Hemoglobin 6.6. MCV 80. Will transfuse 2 units. Post H&H pending. Repeat CBC, CMP, magnesium ordered for the morning -Iron studies pending including TIBC, iron level, iron saturation, ferritin -Continue famotidine 40 mg daily and pantoprazole 40 mg nightly - Kidney function normal with BUN 12, creatinine 0.9. Diabetes: A1c pending. Holding home glimepiride and pioglitazone. Initiate sliding scale insulin with fingersticks ACHS. Glucose 189 on arrival. Hypothyroid: Continue levothyroxine 100 mcg daily. pending TSH ordered for morning COPD Suspected lung cancer with mediastinal metastasis/lymphadenopathy Postobstructive pneumonia -Per my review of CT, patient has 2 golf ball sized masses 1 in left upper lobe and right lower lobe. Right lower lobe lesion appears to have consolidation and a postobstructive pattern. Also has significant mediastinal lymphadenopathy with large lesion compressing esophagus. Patient does report difficulty with swallowing pills and eating food. -Initiate ceftriaxone 1 g daily. Sputum sample pending - duoNebs every 6 hours scheduled. -Supplemental oxygen as needed, goal sats greater 90% -Pulmonology consulted to assist with further workup and management of COPD as well as suspected lung cancer Tobacco use disorder: Nicotine patch daily, greater than 53-[id number] history Sleep disorder: Continue zolpidem 10 mL grams nightly. Anxiety/depression: Continue amitriptyline 25 mg nightly Hyperlipidemia: Continue Lipitor 40 Neuropathy: Continue gabapentin 800 mg 4 times a day Hypertension: Continue lisinopril 20 mg daily Overactive bladder continue home oxybutynin 5 mg twice daily Full code Holding anticoagulation in the setting of possible biopsy Regular diet
--- NOTE | 2024-04-01 07:50 | HMH.PHAINT1 ---
Pharmacy Intervention Comments: Home medication list verified using medication list from pharmacy and patient interview with patient and family member at bedside.
[2024-04-01] MEDS: LISINOPRIL 20MG TABLET 20 MG PO (08:26)
[2024-04-01] MEDS: GABAPENTIN 800MG TABLET 800 MG PO ×2 (08:26→12:08)
[2024-04-01] MEDS: OXYBUTYNIN 5MG TAB 5 MG PO (08:27)
[2024-04-01] MEDS: LEVOTHYROXINE 100MCG (0.1MG) TAB 100 MCG PO (08:27)
[2024-04-01 08:51] LABS: HCV Ab Non Reactive (Non Reactive)
[2024-04-01 09:54] LABS: Basophils # 0.1 K/mm3 (0-0.2); Basophils % 1.6 % (0.1-2.0); Eosinophils # 0.4 K/mm3 (0.0-0.4); Eosinophils % 9.8 % (0.1-12.0); Hematocrit 27.7 % (37.0-47.0); Lymphocytes # 0.6 K/mm3 (0.7-4.5); Lymphocytes % 16.1 % (10-50); Mean Corpuscular HGB Conc 31.1 g/dL (31.8-35.4); Mean Corpuscular Hemoglobin 25.9 pg (27.0-31.2); Mean Corpuscular Volume 83.3 fl (81-99); Mean Platelet Volume 10.5 fl (7.4-10.4); Monocytes # 0.3 K/mm3 (0.1-1.0); Monocytes % 7.4 % (1.7-9.3); Neutrophils # 2.4 K/mm3 (1.8-7.8); Neutrophils % 65.1 % (37.0-80.0); Platelet Count 141 K/mm3 (142-424); Red Blood Count 3.33 M/mm3 (4.20-5.40); Red Cell Distribution Width 18.5 % (11.5-17.5); White Blood Count 3.7 K/mm3 (4.8-10.8)
[2024-04-01 10:09] LABS: Chloride 109 mmol/L (98-107); Hemoglobin 8.6 g/dL (12.2-16.2)
[2024-04-01 10:10] LABS: Albumin Level 3.7 g/dl (3.5-5.0); Potassium 3.6 mmoL/L (3.5-5.1); Sodium 137 mmol/L (136-145)
[2024-04-01 10:12] LABS: Alanine Aminotransferase 18 U/L (12-78); Albumin/Globulin Ratio 1.1 (1.1-1.8); Anion Gap 6.6 mEq/L (5-15); Aspartate Amino Transferase 44 U/L (14-36); Blood Urea Nitrogen 13 mg/dl (7-17); Carbon Dioxide 25 mmol/L (22.0-30.0); Creatinine Clearance Estimated 54 mL/min (50-200); Estimated Glomerular Filt Rate 49 ml/min (>60); GFR (African American) 59 ML/MIN (>60); Globulin 3.4 g/dL (1.3-3.2); Iron 115 ug/dL (37-170); Total Protein,Serum 7.1 g/dl (6.3-8.2)
[2024-04-01 10:13] LABS: Alkaline Phosphatase 58 U/L (38-126); Bilirubin,Total 0.9 mg/dl (0.2-1.3); Calcium 9.4 mg/dl (8.4-10.2); Glucose 184 mg/dl (74-100)
[2024-04-01 10:21] LABS: Total Iron Binding Capacity 436 ug/dL (265-497)
[2024-04-01] MEDS: ACETAMINOPHEN 325MG TAB 650 MG PO (10:36)
[2024-04-01 10:51] LABS: Ferritin 12.4 ng/ml (11.1-264)
[2024-04-01] MEDS: humaLOG 100 UNITS/ML 10ML VIAL (SSI) SQ (11:18)
[2024-04-01 11:20] LABS: POC Glucose,Bedside 214 (70-110)
--- NOTE | 2024-04-01 11:55 | EXP.DC.SUM ---
General Admission date:: 03/31/24 Discharge date: 04/01/24 HPI HPI HPI: History is a 68-year-old female with COPD, chronically on 2 L oxygen. Long history of smoking, has at least a [id number] history. History of diabetes, hypothyroid, pendant's. She presented to the ER for worsening dyspnea with exertion over the past few days. States she has just not felt well for the past few weeks. Has had a persistent cough that is nonproductive. Has previously had anemia with transfusion within the past year at a different hospital. Worked up with no identified source of blood loss. Has also received iron transfusions in the past. On presentation today, she denies loyda fever, blood in her stool, black stools, hemoptysis. Denies any night sweats or unexpected weight loss. Continues to smoke 1 to 1-1/2 packs a day. Workup in the ER concerning for severe anemia with hemoglobin of 6.6. MCV of 80. Chest imaging also identified multiple masses in her lungs along with significant mediastinal lymphadenopathy. Strong concern for lung cancer with metastasis. Medicine was consulted for admission for further management including transfusion and evaluation for new diagnosis of suspected lung cancer. On arrival to the floor, patient is stable on 2 L oxygen. Is pleasant but a little altered due to receiving Ativan in the ER. Sister at bedside helps supplement history. Requesting something to eat. Hospital Course Hospital Course Hospital Course: 68-year-old female who presents with dyspnea with exertion. Found to be profoundly anemic with new finding of suspected lung cancer with mediastinal lymphadenopathy. Discussed case with ER physician, request admission for transfusion as she has antibodies and it will take quite some time for blood to arrive from [place]. Also request admission for further workup and initiation of evaluation of her mediastinal lymphadenopathy and suspected lung cancer. I agreed to admit for further management. Responded well to transfusion. Hemoglobin remained stable in the mid 8 range. Stable to discharge home with close follow-up with pulmonology and oncology in the next week. Further management of suspected lung cancer as an outpatient. Problems addressed as follows: Acute on chronic anemia, iron deficiency -Previous history of iron deficiency and iron transfusions. Hemoglobin 6.6. MCV 80. Transfused 2 units hemoglobin. Patient had antibodies which delayed transfusion. Responded appropriately. 8.6 on morning of discharge. No signs of active bleeding. Iron studies Ferritin 12, iron saturation 26%, TIBC 436, iron 115. Continue famotidine 40 mg daily and pantoprazole 40 mg nightly - Kidney function normal with BUN 12, creatinine 0.9. Diabetes: A1c 6.0. Held home glimepiride and pioglitazone during admission. Resume at discharge diabetes well-controlled. Hypothyroid: Continue levothyroxine 100 mcg daily. TSH 2.8 COPD Suspected lung cancer with mediastinal metastasis/lymphadenopathy Postobstructive pneumonia -Per my review of CT, patient has 2 golf ball sized masses 1 in left upper lobe and right lower lobe. Right lower lobe lesion appears to have consolidation and a postobstructive pattern. Also has significant mediastinal lymphadenopathy with large lesion compressing esophagus. Patient does report difficulty with swallowing pills and eating food. Able to tolerate p.o. intake during admission without difficulty. Initiated on ceftriaxone. Will wean to cefdinir to complete 5 days of antibiotics. White count remained normal on day of discharge. Continue supplemental oxygen at 2 L per baseline for sats greater 90%. Will follow-up with pulmonology next week for further evaluation and possible biopsy/bronchoscopy. Tobacco use disorder: Nicotine patch daily, greater than [id number] history Sleep disorder: Continue zolpidem 10 mL grams nightly. Anxiety/depression: Continue amitriptyline 25 mg nightly Hyperlipidemia: Continue Lipitor 40 Neuropathy: Continue gabapentin 800 mg 4 times a day Hypertension: Continue lisinopril 20 mg daily Overactive bladder continue home oxybutynin 5 mg twice daily Total time spent on discharge 35 minutes in counseling, documentation, chart review, and direct care with patient. Exam Data for Last 24 hours Vital signs and Labs for Last 24 Hours: Temp Pulse Resp BP Pulse Ox O2 Del Method O2 Flow Rate 98.0 F 85 18 143/91 H 87 L Room Air 2 04/01/24 09:40 04/01/24 11:13 04/01/24 09:40 04/01/24 08:40 04/01/24 11:13 04/01/24 11:13 04/01/24 08:58 Laboratory Results - last 24 hr 03/31/24 13:20: WBC 4.6 L, RBC 2.78 L, Hgb 6.6 L*, Hct 22.3 L, MCV 80.2 L, MCH 23.9 L, MCHC 29.8 L, RDW 19.1 H, Plt Count 183, MPV 9.7, Neut % (Auto) 68.6, Lymph % (Auto) 16.3, Wheeler % (Auto) 5.4, Eos % (Auto) 8.3, Baso % (Auto) 1.5, Neut # (Auto) 3.2, Lymph # (Auto) 0.8, Wheeler # (Auto) 0.3, Eos # (Auto) 0.4, Baso # (Auto) 0.1, PT 10.8, INR 0.96, D-Dimer 0.55 H, Sodium 134 L, Potassium 3.8, Chloride 106, Carbon Dioxide 24, Anion Gap 7.8, BUN 12, Creatinine 0.90, Estimated Creat Clear 60, Estimated GFR 62, Est GFR ( Amer) 75, Glucose 189 H, Calcium 9.8, Total Bilirubin 0.5, AST 44 H, ALT 22, Alkaline Phosphatase 80, Troponin I < 0.01, Total Protein 7.8, Albumin 4.1, Globulin 3.7 H, Albumin/Globulin Ratio 1.1, Hepatitis C Antibody Non reactive, Hep C Ab Comment Comment, HIV 1&2 Antibody Rapid Nonreactive 03/31/24 13:21: Blood Type O Positive, Blood Type Confirm O Positive, Antibody Screen Negative, Crossmatch (AHG) See Detail 03/31/24 13:25: VBG pH 7.43 H, VBG pCO2 34.9 L, VBG pO2 78.2 H, VBG HCO3 22.7 L, VBG Total CO2 23.8, VBG O2 Saturation 94.9 H, VBG Base Excess -1.6, VBG Lactic Acid 2.2 H 03/31/24 17:01: Hemoglobin A1c 6.0 03/31/24 17:55: Lactate 0.7 03/31/24 21:01: POC Glucose 199 H 04/01/24 03:00: Hgb 7.0 L, Hct 22.9 L 04/01/24 05:41: POC Glucose 137 H 04/01/24 09:40: WBC 3.7 L, RBC 3.33 L, Hgb 8.6 L D, Hct 27.7 L, MCV 83.3, MCH 25.9 L, MCHC 31.1 L, RDW 18.5 H, Plt Count 141 L, MPV 10.5 H, Neut % (Auto) 65.1, Lymph % (Auto) 16.1, Wheeler % (Auto) 7.4, Eos % (Auto) 9.8, Baso % (Auto) 1.6, Neut # (Auto) 2.4, Lymph # (Auto) 0.6 L, Wheeler # (Auto) 0.3, Eos # (Auto) 0.4, Baso # (Auto) 0.1, Sodium 137, Potassium 3.6, Chloride 109 H, Carbon Dioxide 25, Anion Gap 6.6, BUN 13, Creatinine 1.10 H D, Estimated Creat Clear 54, Estimated GFR 49 L, Est GFR ( Amer) 59 D, Glucose 184 H, Calcium 9.4, Magnesium 2.0, Iron 115, TIBC 436, Iron Saturation 26.57019, Ferritin 12.4 D, Total Bilirubin 0.9, AST 44 H, ALT 18, Alkaline Phosphatase 58, Total Protein 7.1, Albumin 3.7, Globulin 3.4 H, Albumin/Globulin Ratio 1.1, TSH 2.80 04/01/24 11:12: POC Glucose 214 H I & O for Last 24 hours: Intake & Output 03/29/24 03/30/24 03/31/24 04/01/24 23:59 23:59 23:59 23:59 Intake Total 0 / 0 1290 / 1290 Output Total 0 / 0 0 / 0 Balance 0 / 0 1290 / 1290 Weight 69.938 kg 71.3 kg Constitutional Constitutional: no acute distress, average body habitus, chronically ill appearing and cooperative *Routine HEENT Exam Head: Present normocephalic Eye: Present EOMI and PERRL ENT: Present mucous membranes moist *Routine Neck Exam Neck: Present supple and lymphadenopathy *Routine Respiratory Exam Respiratory: Present prolonged expiratory phase, wheezes and diminished air movement; Absent rhonchi or crackles *Routine Cardiovascular Exam Cardiovascular: Present RRR *Routine Abdominal Exam Abdominal: Present soft and normoactive bowel sounds; Absent tenderness *Routine Rectal Exam Patient deferred: visual exam *Routine Exam Patient deferred: external exam *Routine Extremities Exam Extremities: Absent cyanosis, clubbing or edema *Routine Skin Exam Skin: Present intact and warm; Absent rash *Routine Neurological Exam Neurological: Present alert, oriented X3 and moving all extremities; Absent altered mental status Results Data Completed and Pending Labs on day of discharge: Labs from last 24 hours 04/01/24 04/01/24 04/01/24 11:12 09:40 05:41 WBC 3.7 L RBC 3.33 L Hgb 8.6 L D Hct 27.7 L MCV 83.3 MCH 25.9 L MCHC 31.1 L RDW 18.5 H Plt Count 141 L MPV 10.5 H Neut % (Auto) 65.1 Lymph % (Auto) 16.1 Wheeler % (Auto) 7.4 Eos % (Auto) 9.8 Baso % (Auto) 1.6 Neut # (Auto) 2.4 Lymph # (Auto) 0.6 L Wheeler # (Auto) 0.3 Eos # (Auto) 0.4 Baso # (Auto) 0.1 PT INR D-Dimer VBG pH VBG pCO2 VBG pO2 VBG HCO3 VBG Total CO2 VBG O2 Saturation VBG Base Excess VBG Lactic Acid Sodium 137 Potassium 3.6 Chloride 109 H Carbon Dioxide 25 Anion Gap 6.6 BUN 13 Creatinine 1.10 H D Estimated Creat Clear 54 Estimated GFR 49 L Est GFR ( Amer) 59 D Glucose 184 H POC Glucose 214 H 137 H Hemoglobin A1c Lactate Calcium 9.4 Magnesium 2.0 Iron 115 TIBC 436 Iron Saturation 26.90405 Ferritin 12.4 D Total Bilirubin 0.9 AST 44 H ALT 18 Alkaline Phosphatase 58 Troponin I Total Protein 7.1 Albumin 3.7 Globulin 3.4 H Albumin/Globulin Ratio 1.1 TSH 2.80 Hepatitis C Antibody Hep C Ab Comment HIV 1&2 Antibody Rapid Blood Type Blood Type Confirm Antibody Screen Crossmatch ([facility]) 04/01/24 03/31/24 03/31/24 03:00 21:01 17:55 WBC RBC Hgb 7.0 L Hct 22.9 L MCV MCH MCHC RDW Plt Count MPV Neut % (Auto) Lymph % (Auto) Wheeler % (Auto) Eos % (Auto) Baso % (Auto) Neut # (Auto) Lymph # (Auto) Wheeler # (Auto) Eos # (Auto) Baso # (Auto) PT INR D-Dimer VBG pH VBG pCO2 VBG pO2 VBG HCO3 VBG Total CO2 VBG O2 Saturation VBG Base Excess VBG Lactic Acid Sodium Potassium Chloride Carbon Dioxide Anion Gap BUN Creatinine Estimated Creat Clear Estimated GFR Est GFR ( Amer) Glucose POC Glucose 199 H Hemoglobin A1c Lactate 0.7 Calcium Magnesium Iron TIBC Iron Saturation Ferritin Total Bilirubin AST ALT Alkaline Phosphatase Troponin I Total Protein Albumin Globulin Albumin/Globulin Ratio TSH Hepatitis C Antibody Hep C Ab Comment HIV 1&2 Antibody Rapid Blood Type Blood Type Confirm Antibody Screen Crossmatch ([facility]) 03/31/24 03/31/24 03/31/24 17:01 13:25 13:21 WBC RBC Hgb Hct MCV MCH MCHC RDW Plt Count MPV Neut % (Auto) Lymph % (Auto) Wheeler % (Auto) Eos % (Auto) Baso % (Auto) Neut # (Auto) Lymph # (Auto) Wheeler # (Auto) Eos # (Auto) Baso # (Auto) PT INR D-Dimer VBG pH 7.43 H VBG pCO2 34.9 L VBG pO2 78.2 H VBG HCO3 22.7 L VBG Total CO2 23.8 VBG O2 Saturation 94.9 H VBG Base Excess -1.6 VBG Lactic Acid 2.2 H Sodium Potassium Chloride Carbon Dioxide Anion Gap BUN Creatinine Estimated Creat Clear Estimated GFR Est GFR ([facility] Am) Glucose POC Glucose Hemoglobin A1c 6.0 Lactate Calcium Magnesium Iron TIBC Iron Saturation Ferritin Total Bilirubin AST ALT Alkaline Phosphatase Troponin I Total Protein Albumin Globulin Albumin/Globulin Ratio TSH Hepatitis C Antibody Hep C Ab Comment HIV 1&2 Antibody Rapid Blood Type O Positive Blood Type Confirm O Positive Antibody Screen Negative Crossmatch ([facility]) See Detail 03/31/24 13:20 WBC 4.6 L RBC 2.78 L Hgb 6.6 L* Hct 22.3 L MCV 80.2 L MCH 23.9 L MCHC 29.8 L RDW 19.1 H Plt Count 183 MPV 9.7 Neut % (Auto) 68.6 Lymph % (Auto) 16.3 Wheeler % (Auto) 5.4 Eos % (Auto) 8.3 Baso % (Auto) 1.5 Neut # (Auto) 3.2 Lymph # (Auto) 0.8 Wheeler # (Auto) 0.3 Eos # (Auto) 0.4 Baso # (Auto) 0.1 PT 10.8 INR 0.96 D-Dimer 0.55 H VBG pH VBG pCO2 VBG pO2 VBG HCO3 VBG Total CO2 VBG O2 Saturation VBG Base Excess VBG Lactic Acid Sodium 134 L Potassium 3.8 Chloride 106 Carbon Dioxide 24 Anion Gap 7.8 BUN 12 Creatinine 0.90 Estimated Creat Clear 60 Estimated GFR 62 Est GFR ( Amer) 75 Glucose 189 H POC Glucose Hemoglobin A1c Lactate Calcium 9.8 Magnesium Iron TIBC Iron Saturation Ferritin Total Bilirubin 0.5 AST 44 H ALT 22 Alkaline Phosphatase 80 Troponin I < 0.01 Total Protein 7.8 Albumin 4.1 Globulin 3.7 H Albumin/Globulin Ratio 1.1 TSH Hepatitis C Antibody Non reactive Hep C Ab Comment Comment HIV 1&2 Antibody Rapid Nonreactive Blood Type Blood Type Confirm Antibody Screen Crossmatch (AHG) DS: Diagnosis Discharge Diagnosis (1) Anemia: Status: Acute Code(s): D64.9 - Anemia, unspecified Qualifiers: Anemia type: iron deficiency Iron deficiency anemia type: chronic blood loss Qualified Code(s): D50.0 - Iron deficiency anemia secondary to blood loss (chronic) (2) Mediastinal lymphadenopathy: Status: Acute Code(s): R59.0 - Localized enlarged lymph nodes (3) Shortness of breath: Status: Acute Code(s): R06.02 - Shortness of breath (4) Diabetes: Status: Acute Code(s): E11.9 - Type 2 diabetes mellitus without complications (5) COPD (chronic obstructive pulmonary disease): Status: Acute Code(s): J44.9 - Chronic obstructive pulmonary disease, unspecified (6) Tobacco abuse: Status: Acute Code(s): Z72.0 - Tobacco use (7) Hypothyroid: Status: Acute Code(s): E03.9 - Hypothyroidism, unspecified (8) AAA (abdominal aortic aneurysm): Status: Acute Code(s): I71.40 - Abdominal aortic aneurysm, without rupture, unspecified (9) HTN (hypertension): Status: Acute Code(s): I10 - Essential (primary) hypertension (10) Cancer: Status: Acute Code(s): C80.1 - Malignant (primary) neoplasm, unspecified Meds Home Medications and Allergies Home Medications ?Medication ?Instructions ?Recorded ?Confirmed ?Type atorvastatin 80 mg tablet 80 mg PO HS Cholesterol 12/07/18 04/01/24 History levothyroxine 100 mcg tablet 100 mcg PO DAILY 12/07/18 04/01/24 History lisinopril 20 mg tablet 20 mg PO DAILY blood pressure 12/07/18 03/31/24 History famotidine 40 mg tablet 40 mg PO DAILY Acid Reflux 02/09/23 03/31/24 History furosemide 20 mg tablet 20 mg PO DAILY 02/09/23 03/31/24 History glimepiride 4 mg tablet 4 mg PO BID Diabetes 02/09/23 03/31/24 History promethazine 25 mg tablet 25 mg PO TIDP PRN Nausea 02/09/23 03/31/24 History zolpidem 10 mg tablet 10 mg PO HS sleep 02/09/23 03/31/24 History gabapentin 800 mg tablet 800 mg PO QID neuropathic pain 02/10/23 03/31/24 History omeprazole 40 mg capsule,delayed 40 mg PO DAILY Acid Reflux 02/10/23 03/31/24 History release fenofibrate micronized 134 mg 134 mg PO DAILY 03/13/23 03/31/24 History capsule oxybutynin chloride 5 mg tablet 5 mg PO BID 03/13/23 03/31/24 History amitriptyline 100 mg tablet 100 mg PO DAILY 04/01/24 04/01/24 History cefdinir 300 mg capsule 300 mg PO BID 5 days #10 caps 04/01/24 Rx diclofenac sodium 75 mg 75 mg PO BID 04/01/24 04/01/24 History tablet,delayed release empagliflozin 10 mg tablet 10 mg PO DAILY 04/01/24 04/01/24 History (Jardiance) ipratropium 0.5 mg-albuterol 3 mg 3 ml inhalation Q6RT 30 days #180 04/01/24 Rx (2.5 mg base)/3 mL nebulization mL soln nicotine 21 mg/24 hr daily 21 mg transdermal Q24H 28 days #28 04/01/24 Rx transdermal patch ea pioglitazone 45 mg tablet 45 mg PO DAILY 04/01/24 04/01/24 History New Prescriptions to Start Prescriptions: Lio Hernandez ipratropium-albuterol Lio Perry nicotine Lio Perry Allergies Allergy/AdvReac Type Severity Reaction Status Date / Time No Known Allergies Allergy Verified 04/02/23 10:39 Discharge Plan Disposition Patient Disposition: Home, Self-Care Condition: Fair Follow up Plan Follow up with: Mohan Calhoun [Primary Care Provider] - 04/15/24 10:00 am Abiel Munguia MD [Staff Physician] - 04/08/24 1:00 pm Fatuma Swan MD [Physician] - 04/08/24 1:00 pm () Prescriptions/Medication Reconciliation: New ipratropium-albuterol 0.5 mg-3 mg(2.5 mg base)/3 mL Solution For Nebulization 3 ml inhalation Q6RT 30 Days Qty: 180 0RF nicotine 21 mg/24 hr Patch 24 Hour 21 mg transdermal Q24H 28 Days Qty: 28 0RF cefdinir 300 mg capsule 300 mg PO BID 5 Days Qty: 10 0RF Continued oxybutynin chloride 5 mg tablet 5 mg PO BID fenofibrate micronized 134 mg capsule 134 mg PO DAILY atorvastatin 80 MG tablet 80 mg PO HS lisinopril 20 MG tablet 20 mg PO DAILY levothyroxine 100 MCG tablet 100 mcg PO DAILY famotidine 40 mg tablet 40 mg PO DAILY Patient Comments: TAKE 1 TABLET BY MOUTH EVERY DAY glimepiride 4 mg tablet 4 mg PO BID Patient Comments: TAKE 1 TABLET BY MOUTH TWICE A DAY promethazine 25 mg tablet 25 mg PO TIDP PRN (Reason: Nausea) Patient Comments: TAKE 1 TABLET BY MOUTH THREE TIMES A DAY zolpidem 10 mg tablet 10 mg PO HS Patient Comments: TAKE 1 TABLET BY MOUTH EVERY EVENING furosemide 20 mg tablet 20 mg PO DAILY Patient Comments: TAKE 1 TABLET BY MOUTH EVERY DAY omeprazole 40 mg capsule,delayed release(DR/EC) 40 mg PO DAILY Patient Comments: TAKE 1 CAPSULE BY MOUTH EVERY DAY gabapentin 800 mg tablet 800 mg PO QID Patient Comments: TAKE 1 TABLET BY MOUTH FOUR TIMES A DAY amitriptyline 100 mg tablet 100 mg PO DAILY Patient Comments: TAKE 1 TABLET BY MOUTH EVERY DAY pioglitazone 45 mg tablet 45 mg PO DAILY Patient Comments: TAKE 1 TABLET BY MOUTH EVERY DAY diclofenac sodium 75 mg tablet,delayed release (DR/EC) 75 mg PO BID Patient Comments: TAKE 1 TABLET BY MOUTH TWICE A DAY FOR 30 DAYS (QUANTITY 60) Jardiance 10 mg tablet 10 mg PO DAILY Patient Comments: TAKE 1 TABLET BY MOUTH EVERY DAY Other Ambulatory Orders: Home Medical Equipment (Routine) Location: None Selected Ordered By: Lio Perry Problem Reconciliation Problems Reviewed?: Yes Patient Discharge Instructions ACTIVITY: Continue current activity DIET: continue same diet Patient Instructions: Anemia: How Food and Vitamins Can Help, Lung Cancer, Anemia Print Language: Albanian Providers Primary Care Provider: Mohan Calhoun Provider: Lio Perry Attending Provider: Lio Perry
[2024-04-01] MEDS: CEFTRIAXONE SODIUM 1 GM in 0.9 % SODIUM CHLORIDE 50 ML IV (12:33)
--- NOTE | 2024-04-01 12:37 | CARE MANAGER ---
Patient will require nebulizer at discharge. Had no preference of DME other than [facility]eud[facility] Pastr[facility]. Information sent to [facility] and they will deliver nebulizer to home. MARTINEZ Barclay
--- NOTE | 2024-04-02 13:18 | SW/DCPLANNER ---
Hospital follow up phone call: patient stated that she is doing well at home, received all of her new medications and is aware of her follow up appointments. Patient did not have any further needs/questions at this time.
== END 2024-04-01 13:57 | disposition home or self-care (01) ==
LOC: ER 15:27 → 2ND 17:05
PROVIDERS: Internal Medicine; Student in an Organized Health Care Education/Training Program; Admitting Provider Internal Medicine Adolescent Medicine; Emergency Provider Emergency Medicine; PCP Family Medicine; Visit Provider Internal Medicine Adolescent Medicine
DX: D50.0 Iron deficiency anemia secondary to blood loss (chronic) (principal); R06.02 Shortness of breath; E11.9 Type 2 diabetes mellitus without complications; F17.210 Nicotine dependence, cigarettes, uncomplicated; E03.9 Hypothyroidism, unspecified; I71.40 Abdominal aortic aneurysm, without rupture, unspecified; I10 Essential (primary) hypertension; C34.12 Malignant neoplasm of upper lobe, left bronchus or lung; R59.0 Localized enlarged lymph nodes; Z79.899 Other long term (current) drug therapy; C34.31 Malignant neoplasm of lower lobe, right bronchus or lung; Z99.81 Dependence on supplemental oxygen
CPT/HCPCS: 36415; 36430; 71046; 71260; 80053; 82728; 82803; 82962; 83036; 83540; 83550; 83605; 83735; 84443; 84484; 85014; 85018; 85025; 85378; 85610; 86803; 86850; 87389; 93005; 94640; 94761; 99285; G0378; J0696; J2060; J2405; J7620; P9016; Q9967

== ENCOUNTER 2024-04-08 14:53 | Outpatient (CLI) | payer MEDICARE, SELFPAY ==
[2024-04-08 15:34] LABS: Basophils # 0.1 K/mm3 (0-0.2); Basophils % 1.2 % (0.1-2.0); Eosinophils # 0.6 K/mm3 (0.0-0.4); Eosinophils % 11.5 % (0.1-12.0); Hematocrit 31.4 % (37.0-47.0); Hemoglobin 9.5 g/dL (12.2-16.2); Lymphocytes # 0.8 K/mm3 (0.7-4.5); Lymphocytes % 16.1 % (10-50); Mean Corpuscular HGB Conc 30.3 g/dL (31.8-35.4); Mean Corpuscular Hemoglobin 25.3 pg (27.0-31.2); Mean Corpuscular Volume 83.4 fl (81-99); Mean Platelet Volume 8.5 fl (7.4-10.4); Monocytes # 0.3 K/mm3 (0.1-1.0); Monocytes % 5.1 % (1.7-9.3); Neutrophils # 3.4 K/mm3 (1.8-7.8); Neutrophils % 66.1 % (37.0-80.0); Platelet Count 142 K/mm3 (142-424); Red Blood Count 3.76 M/mm3 (4.20-5.40); Red Cell Distribution Width 18.6 % (11.5-17.5); White Blood Count 5.2 K/mm3 (4.8-10.8)
[2024-04-08 16:01] LABS: Iron 41 ug/dL (37-170)
[2024-04-08 16:10] LABS: Total Iron Binding Capacity 407 ug/dL (265-497)
[2024-04-08 16:38] LABS: Ferritin 23.4 ng/ml (11.1-264)
== END 2024-04-08 23:59 | disposition home or self-care (01) ==
LOC: LAB 14:54
PROVIDERS: PCP Family Medicine; Visit Provider Internal Medicine Medical Oncology
DX: C34.90 Malignant neoplasm of unspecified part of unspecified bronchus or lung (principal)
CPT/HCPCS: 36415; 82728; 83540; 83550; 85025